=== PATIENT | female | born 1950 | race Caucasian/White ===

== ENCOUNTER 2019-10-01 10:45 | Outpatient (CLI) | payer OTHER, SELFPAY ==
--- NOTE | ~2019-10-01 | XR_ITS ---
XR shoulder RT min 2V 10/01/2019 11:25 Indication: Aftercare for right shoulder joint replacement surgery Procedure: 5 views right shoulder Comparison: No prior studies for comparison. Findings: There is a right total shoulder arthroplasty. Prosthesis well seated. No evidence for loose william. No fracture or traumatic malalignment. Visualized lung parenchyma is unremarkable. Impression: 1: No acute bone or joint abnormality. Reviewed, dictated and finalized at location A. Impression: 1: No acute bone or joint abnormality.
== END 2019-10-01 10:46 | disposition home or self-care (01) ==
PROVIDERS: PCP Internal Medicine
DX: Z96.611 Presence of right artificial shoulder joint (principal); Z47.1 Aftercare following joint replacement surgery
CPT/HCPCS: 73030

== ENCOUNTER 2021-09-01 09:16 | Outpatient (CLI) | payer MEDICARE, SELFPAY ==
--- NOTE | ~2021-09-01 | MM_ITS ---
EXAMINATION: MM screening emanuel BI w loretta HISTORY: Screening mammogram TECHNIQUE: Craniocaudal and mediolateral oblique 3-D tomosynthesis images were obtained and synthetic 2-D images were generated. CAD analysis was submitted and interpreted. COMPARISON: 01/2019 bilateral screening mammogram BREAST PARENCHYMAL COMPOSITION: There are scattered areas of fibroglandular density. FINDINGS: History of bilateral breast reduction surgery 50 years ago, which likely accounts for stabl e mild fibroglandular asymmetry as well as some benign calcifications, particularly prominent benign fat necrosis calcification in the posterior lower mid left breast. There is no evidence of suspicious mass, calcification, or architectural distortion to suggest malign missy in either breast. There has been no suspicious interval change. IMPRESSION: 1. No mammographic evidence of malignancy. 2. Recommend routine screening mammography in one year. BI-RADS Category 2: Benign finding(s). Reviewed, dictated and finalized at location A.
== END 2021-09-01 09:17 | disposition home or self-care (01) ==
LOC: ANHIMG 09:18
PROVIDERS: PCP Family Medicine; Visit Provider Family Medicine
DX: Z12.31 Encounter for screening mammogram for malignant neoplasm of breast (principal)
CPT/HCPCS: 77063; 77067

== ENCOUNTER → 2021-12-09 08:25 | Outpatient (CLI) | payer MEDICARE, SELFPAY ==
--- NOTE | ~2021-12-09 | MR_ITS ---
EXAMINATION: MR lumbar spine wo con DATE: 12/09/2021 08:59 INDICATION: Lumbago. TECHNIQUE: Magnetic resonance imaging (MRI) of the lumbar spine was performed without intravenous con trast. Sequences included sagittal T2-weighted FSE, sagittal T2-weighted FS FSE, sagittal T1-weighted FSE, and axial T2-weighted FSE. COMPARISON: Lumbar spine MRI 11/09/2016 FINDINGS: There is 5 degrees levocurvature of lumbar spine. There is a transitional segment at the funmilayo mbosacral junction that is designated L5. There is mild chronic anterior wedging of T11 vertebral bod y. There is severely decreased disc height at T11-T12, mildly decreased disc height at T12-L1 and L1- L2, moderately decreased disc height at L4-L5 with endplate remodeling. There is a hemangioma in L1 v ertebral body. There is ligamentum flavum hypertrophy at the lumbar disc levels. The distal spinal co rd signal intensity is normal. The conus medullaris is at L1. The following disc levels are specifica lly discussed: L1-L2: The disc is bulging. There is mild bilateral facet joint osteoarthritis. There is mild bilater al neural foraminal stenosis. There is mild central canal stenosis. L2-L3: The disc is bulging. There is moderate right and severe left facet joint osteoarthritis. There is mild bilateral neural foraminal stenosis. There is mild central canal stenosis. L3-L4: The disc is bulging and has an annular fissure. There is severe bilateral facet joint osteoart hritis. There is mild bilateral neural foraminal stenosis. There is mild central canal stenosis. L4-L5: The disc is bulging and has an annular fissure. There is severe bilateral facet joint osteoart hritis. There is mild bilateral neural foraminal stenosis. There is mild central canal stenosis. L5-S1: The disc does not extend beyond the endplate margin. There is no facet joint hypertrophy. Ther e is no neural foraminal stenosis. There is no central canal stenosis. IMPRESSION: 1. Moderate lumbar spondylosis, stable from 11/09/2016. Reviewed, dictated and finalized at location A.
== END ==
PROVIDERS: PCP Family Medicine; Visit Provider Nurse Practitioner Family
DX: M47.896 Other spondylosis, lumbar region (principal)
CPT/HCPCS: 72148

== ENCOUNTER 2022-01-26 10:32 | Outpatient (CLI) | payer MEDICARE, SELFPAY ==
[2022-01-26 19:20] LABS: Alanine Aminotransferase 16 U/L (6-35); Albumin Level 3.8 g/dL (3.5-5.1); Alkaline Phosphatase 70 U/L (38-126); Anion Gap 7 mmol/L (8-16); Aspartate Amino Transferase 33 U/L (14-36); Bilirubin,Total 0.4 mg/dL (0.2-1.3); Blood Urea Nitrogen 19 mg/dL (7-17); Calcium 8.9 mg/dL (8.4-10.2); Carbon Dioxide 29 mmol/L (22-30); Chloride 105 mmol/L (98-107); Cholesterol 161 mg/dL (0-200); Estimated Glomerular Filt Rate > 60; Glucose 100 mg/dL (65-110); HDL Direct 56 mg/dL; Potassium 4.1 mmol/L (3.4-5.0); Sodium 141 mmol/L (137-145); Triglycerides 193 mg/dL (<150)
[2022-01-26 19:31] LABS: LDL Cholesterol Direct 64 mg/dL
[2022-01-26 21:10] LABS: Thyroid Stimulating Hormone Reflex 0.491 uIU/mL (0.465-4.68)
== END 2022-01-26 10:33 | disposition home or self-care (01) ==
LOC: ANHGOSHLAB 10:33
PROVIDERS: PCP Family Medicine; Visit Provider Family Medicine
DX: E78.2 Mixed hyperlipidemia (principal); I10 Essential (primary) hypertension; E03.9 Hypothyroidism, unspecified
CPT/HCPCS: 36415; 80053; 80061; 84443

== ENCOUNTER 2022-11-05 14:59 | Outpatient (CLI) | payer MEDICARE, SELFPAY ==
[2022-11-05 19:16] LABS: Alanine Aminotransferase 21 U/L (6-35); Albumin Level 4.2 g/dL (3.5-5.1); Alkaline Phosphatase 98 U/L (38-126); Anion Gap 3 mmol/L (8-16); Aspartate Amino Transferase 33 U/L (14-36); Bilirubin,Total 0.5 mg/dL (0.2-1.3); Blood Urea Nitrogen 23 mg/dL (7-17); Calcium 9.2 mg/dL (8.4-10.2); Carbon Dioxide 34 mmol/L (22-30); Chloride 103 mmol/L (98-107); Cholesterol 181 mg/dL (0-200); Estimated Glomerular Filt Rate > 60; Glucose 93 mg/dL (65-110); HDL Direct 57 mg/dL; Potassium 4.2 mmol/L (3.4-5.0); Sodium 140 mmol/L (137-145); Triglycerides 182 mg/dL (<150)
[2022-11-05 19:27] LABS: LDL Cholesterol Direct 76 mg/dL
[2022-11-05 19:35] LABS: Thyroid Stimulating Hormone Reflex 0.059 uIU/mL (0.465-4.68)
[2022-11-05 20:19] LABS: Folic Acid 18.1 ng/mL (2.76->20)
[2022-11-05 20:55] LABS: Free T4 Free Thyroxine Reflex 1.27 ng/dL (0.78-2.19)
[2022-11-05 21:41] LABS: Total Triiodothyronine (T3) 1.27 NG/ML (0.97-1.69)
== END 2022-11-05 15:00 | disposition home or self-care (01) ==
LOC: ANHGOSHLAB 15:00
PROVIDERS: PCP Family Medicine; Visit Provider Family Medicine
DX: Z13.220 Encounter for screening for lipoid disorders (principal); R20.2 Paresthesia of skin; Z13.29 Encounter for screening for other suspected endocrine disorder; Z13.228 Encounter for screening for other metabolic disorders
CPT/HCPCS: 36415; 80053; 80061; 82607; 82746; 84439; 84443; 84480

== ENCOUNTER 2022-12-17 13:04 | Outpatient (CLI) | payer MEDICARE, SELFPAY ==
[2022-12-17 19:53] LABS: Thyroid Stimulating Hormone Reflex 0.136 uIU/mL (0.465-4.68)
[2022-12-17 20:34] LABS: Free T4 Free Thyroxine Reflex 1.53 ng/dL (0.78-2.19)
[2022-12-17 21:51] LABS: Total Triiodothyronine (T3) 1.16 NG/ML (0.97-1.69)
== END 2022-12-17 13:05 | disposition home or self-care (01) ==
LOC: ANHGOSHLAB 13:05
PROVIDERS: PCP Family Medicine; Visit Provider Family Medicine
DX: Z13.29 Encounter for screening for other suspected endocrine disorder (principal); E03.9 Hypothyroidism, unspecified
CPT/HCPCS: 36415; 84439; 84443; 84480

== ENCOUNTER 2023-04-08 12:31 | Outpatient (CLI) | payer MEDICARE, SELFPAY ==
[2023-04-09 09:34] LABS: Thyroid Stimulating Hormone 0.591 uIU/mL (0.465-4.680)
== END 2023-04-08 12:32 | disposition home or self-care (01) ==
PROVIDERS: PCP Family Medicine; Visit Provider Family Medicine
DX: E03.9 Hypothyroidism, unspecified (principal)
CPT/HCPCS: 36415; 84439; 84443

== ENCOUNTER 2023-05-26 03:53 | Day surgery (SDC) | payer MEDICARE, SELFPAY ==
[2023-05-06 10:22] VITALS: BMI 28.4
--- NOTE | 2023-05-17 09:30 | SUR.PREOP ---
Patient called regarding upcoming procedure. Reviewed preop instructions, appointment times, and procedure prep.
--- NOTE | 2023-05-24 09:42 | SUR.PREOP ---
Patient called regarding upcoming procedure. Reviewed preop instructions, appointment times, and procedure prep.
[2023-05-26 06:55] VITALS: BP 106/61; PULSE 84; RESP 18; TEMP 36.1; O2SAT 100
[2023-05-26] MEDS: LACTATED RINGERS 1,000 ML 150 ML IV CONT (07:13)
--- NOTE | 2023-05-26 07:43 | WPDANESEPPF ---
Anes - Initial Pre Proc Eval Procedure: Operation Date: 05/26/23 08:00 Proposed Procedures p Colonoscopy - Blas Juares MD Date/Time: 05/26/23 07:43 Surgeon: Blas Juares MD Pre Op Diagnosis: change in bowel habit,constipation Patient Data Age: 72 Gender: F Height: 1.65 m Weight: 79.4 kg Last Vital Signs Temp 97 F L 05/26/23 06:55 Pulse 84 05/26/23 06:55 Resp 18 05/26/23 06:55 BP 106/61 05/26/23 06:55 Pulse Ox 100 05/26/23 06:55 O2 Del Method Room Air 05/26/23 06:55 Allergies Allergy/AdvReac Type Severity Reaction Status Date / Time No Known Allergies Allergy Verified 05/26/23 06:53 Home Medications Medication Instructions Recorded Confirmed Type diphenhydramine 25 1 tablet PO Q6H PRN Pain 05/24/19 05/06/23 History mg-acetaminophen 500 mg tablet (Tylenol PM Extra Strength) duloxetine 60 mg capsule,delayed 60 mg PO DAILY #90 caps 07/06/22 05/06/23 Rx release lisinopril 20 mg tablet 20 mg PO DAILY #90 tabs 07/06/22 05/06/23 Rx lovastatin 40 mg tablet 40 mg PO DAILY #90 tabs 07/06/22 05/06/23 Rx gabapentin 300 mg capsule 600 mg PO BID #360 caps 12/07/22 05/06/23 Rx cholecalciferol (vitamin D3) 25 1,000 unit PO DAILY 04/06/23 05/06/23 History mcg (1,000 unit) capsule levothyroxine 88 mcg tablet 88 mcg PO DAILY #30 tabs 04/12/23 05/06/23 Rx lactulose 20 gram/30 mL oral 20 g (30 mL) PO BID PRN 05/04/23 05/06/23 Rx solution constipation #1,200 mL Patient hx anesthesia problems: none Family hx anesthesia problems: none Results Review: All pre-operative results and documents have been reviewed as part of the pre-operative evaluation. [facility] Family History Family History Mother Hypertension Family history of heart disease in male family member before age 55 Diabetes mellitus, Onset Age: 81 Family history of cardiovascular disease, Onset Age: 81 Sibling Hypertension Family history of heart disease in male family member before age 55 Father Family history of lung cancer Patient's father is Grandparent Family history of type 2 diabetes mellitus Social History Social History Smoking status: Never smoker Alcohol intake: never Substance use type: does not use Lack of Transportation: No Lack of Food: Never True Current Housing: I Have Housing Concerned About Future Housing: No Difficulty Paying Gas/Electric Bills: No Difficulty Paying for Meds: No Currently Unemployed: No Education: High School Diploma/GED Difficulty w/ Childcare or Family Care: No Living arrangements: with family Spiritual care concerns: No Anes - Eval Final PreProcedure Day of Procedure 05/26/23 07:43 Patient weight: normal Heart: regular rate and rhythm Lungs: clear to auscultation Airway: Mallampati scale class II Neurological: alert and oriented Last oral intake: >/= 8 hours ASA classification: III Emergent: no Anesthetic plan: proceed Anesthesia type and monitoring: general GIVS and standard monitoring Results Review: All pre-operative results and documents have been reviewed as part of the pre-operative evaluation. Informed Consent: The patient's anesthetic plan and its attendant risks and benefits were discussed with the patient/family/POA. Questions were solicited and answers provided to the satisfaction of the patient/family/POA.
--- NOTE | 2023-05-26 07:46 | PM.HPGS ---
History of Present Illness History of Present Illness Consent: Risks, benefits, and alternatives have been discussed and questions answered. Patient agrees to proceed with procedure. Chief complaint: change in bowel habit,constipation Narrative: Alyssa Faria is a 72 year old female with new onset of constipation, last colonoscopy 2011 Review of Systems Constitutional: Constitutional: Denies headache(s) and Denies weakness Eyes: Eyes: Denies blurry vision ENT: Reports Normal hearing present, Denies headache(s) and Denies neck pain Cardiovascular: Cardiovascular: Denies chest pain and Denies dyspnea Respiratory: Respiratory: Denies dyspnea Gastrointestinal: Gastrointestinal: Reports no additional gastrointestinal complaints Genitourinary: Genitourinary: Denies dysuria Musculoskeletal: Musculoskeletal: Denies neck pain Integumentary/Breasts: Skin/Breast: Denies dry skin Neurologic: Reports Normal hearing present, Denies headache(s) and Denies weakness Psychiatric: Psychiatric: Denies anxiety Endocrine: Endocrine: Denies change in body appearance Hematologic/Lymphatic: Hematologic/Lymphatic: Denies easy bleeding Allergic/Immunologic: Allergic/Immunologic: Denies urticaria PMFSH Past Medical History Medical History (Updated 05/26/23 @ 07:46 by Bals Juares MD) Constipation Family History Family History Mother Hypertension Family history of heart disease in male family member before age 55 Diabetes mellitus, Onset Age: 81 Family history of cardiovascular disease, Onset Age: 81 Sibling Hypertension Family history of heart disease in male family member before age 55 Father Family history of lung cancer Patient's father is Grandparent Family history of type 2 diabetes mellitus Social History Social History Smoking status: Never smoker Alcohol intake: never Substance use type: does not use Lack of Transportation: No Lack of Food: Never True Current Housing: I Have Housing Concerned About Future Housing: No Difficulty Paying Gas/Electric Bills: No Difficulty Paying for Meds: No Currently Unemployed: No Education: High School Diploma/GED Difficulty w/ Childcare or Family Care: No Living arrangements: with family Spiritual care concerns: No Meds Home Medications and Allergies Home Medications Medication Instructions Recorded Confirmed Type diphenhydramine 25 1 tablet PO Q6H PRN Pain 05/24/19 05/06/23 History mg-acetaminophen 500 mg tablet (Tylenol PM Extra Strength) duloxetine 60 mg capsule,delayed 60 mg PO DAILY #90 caps 07/06/22 05/06/23 Rx release lisinopril 20 mg tablet 20 mg PO DAILY #90 tabs 07/06/22 05/06/23 Rx lovastatin 40 mg tablet 40 mg PO DAILY #90 tabs 07/06/22 05/06/23 Rx gabapentin 300 mg capsule 600 mg PO BID #360 caps 12/07/22 05/06/23 Rx cholecalciferol (vitamin D3) 25 1,000 unit PO DAILY 04/06/23 05/06/23 History mcg (1,000 unit) capsule levothyroxine 88 mcg tablet 88 mcg PO DAILY #30 tabs 04/12/23 05/06/23 Rx lactulose 20 gram/30 mL oral 20 g (30 mL) PO BID PRN 05/04/23 05/06/23 Rx solution constipation #1,200 mL Allergies Allergy/AdvReac Type Severity Reaction Status Date / Time No Known Allergies Allergy Verified 05/26/23 06:53 Vital Signs Vital Signs - 24 hr 05/26/23 06:55 Temperature 97 F L Pulse Rate 84 Respiratory Rate 18 Blood Pressure 106/61 Pulse Oximetry 100 Oxygen Delivery Room Air Exam Const: General: comfortable and no acute distress HENMT: Face/Nose/Sinus: Normal nares present Eyes: General: appearance normal, both eyes and all related structures Neck: Neck: no JVD Resp: Auscultation: clear to auscultation bilaterally Cardio: Rate: regular rate Rhythm: regular rhythm GI: Inspection: non-distended GI Palp: Yes
[2023-05-26 08:05] VITALS: BP 90/53; PULSE 72; RESP 18; O2SAT 99
[2023-05-26 08:15] VITALS: BP 96/55; PULSE 74; RESP 13; O2SAT 100
[2023-05-26 08:25] VITALS: BP 99/62; PULSE 71; RESP 22; O2SAT 100
--- NOTE | 2023-05-26 08:50 | SUR.PHASEII ---
RN assisted pt spouse to get the car via wheelchair. pt spouse did not know what car they drove to the hospital, what color it was or where they had parked. visitor asked where his was and RN reminded pt that she was getting dressed in recovery. pt then asked what he needed to do next after arriving to the car. RN asked visitor if he normally drives. visitor stated he does sometimes. Rn expressed concern with visitor driving. Rn then addressed the concerns with the pt. pt agreed to then call neighbor to pick them up. spouse brought back into recovery room to wait with pt. pt and visitor deny needs. awaiting ride at this time.
== END 2023-05-26 09:15 | disposition home or self-care (01) ==
PROVIDERS: PCP Family Medicine; Visit Provider Internal Medicine Gastroenterology
PROC: 0DJD8ZZ Inspection of Lower Intestinal Tract, Via Natural or Artificial Opening Endoscopic (ICD-10-PCS; CPT 45378; principal; 2023-05-26 08:00)
DX: D12.2 Benign neoplasm of ascending colon (principal); K64.8 Other hemorrhoids; K59.00 Constipation, unspecified
CPT/HCPCS: 45385; 88305; J2704; J7120

== ENCOUNTER 2023-06-04 12:27 | Outpatient (CLI) | payer MEDICARE, SELFPAY ==
--- NOTE | ~2023-06-04 | DEXA_ITS ---
Bone Density Report Name: KACEY ADAMS Age: 72 Sex: Female Ethnicity: White Date of : 1950 Indication: postmenopausal; screening for osteoporosis; height loss; inflammatory bowel disease; hysterectomy; Referring Provider: MALIA WANG Study: Bone densitometry was performed. Exam Date: June 04, 2023 Accession number: [id number] Bone Density: Region BMD T-score Z-score Classification AP Spine(L1-L4) 1.137 0.8 3.1 Normal Femoral Neck (Left) 0.756 -0.8 1.2 Normal Total Hip (Left) 0.907 -0.3 1.4 Normal Femoral Neck (Right) 0.667 -1.6 0.4 Osteopenia Total Hip (Right) 0.898 -0.4 1.3 Normal Total Hip Mean 0.903 -0.4 1.4 Normal World Health Organization criteria for BMD impression classify patients as: Normal (T-score at or above -1.0), Osteopenia (T-score between -1.0 and -2.5), or Osteoporosis (T-score at or below -2.5). 10-year Fracture Risk(1): Major Osteoporotic Fracture 11% Hip Fracture 2.0% Reported Risk Factors: [place] (), Neck BMD=0.667, BMI=30.6 (1) FRAX(R) Version 3.08. Fracture probability calculated for an untreated patient. Fracture probability may be lower if the patient has received treatment. Clinical Information Provided by Patient: Has used the following medications: Vitamin D Has the following medical conditions: Inflammatory bowel diseases, Hysterectomy, hypothyroid Patient maximum height was 66.0 Does not regularly consume dairy products Drinks caffeinated beverages Onset of menses at age 10 Number of children 1 Impression: The patient has low bone mass, based on the Right Femoral Neck T-score. The patient has an estimated ten-year risk of hip fracture of 2% and an estimated ten-year risk of major fracture of 11%, based on the WHO FRAX algorithm. Discussion: BONE DENSITY IS LOW AT ONE OR MORE SKELETAL SITES. This patient's lowest T-score is low at one or more skeletal sites. It meets the World Health Organization's (WHO) criteria for ?low bone mass? (T-score between -1.0 and -2.5). The patient's 10-year risk of fracture as calculated by FRAX is less than the threshold where pharmacological therapy is recommended by the National Osteoporosis Foundation (NOF). However, all treatment decisions require clinical judgment and consideration of individual patient factors, including patient preferences, comorbidities, previous drug use, risk factors not captured in the FRAX model (e.g., frailty, falls, vitamin D deficiency, increased bone turnover, interval significant decline in bone density) and possible under or overestimation of fracture risk by FRAX. The patient should follow a healthful lifestyle (good nutrition with adequate calcium and vitamin D, and appropriate weight-bearing exercise). Follow-Up: Consider repeating this study in 2 t
== END 2023-06-04 12:28 | disposition home or self-care (01) ==
LOC: ANHIMG 12:28
PROVIDERS: PCP Family Medicine; Visit Provider Family Medicine
DX: S22.000A Wedge compression fracture of unspecified thoracic vertebra, initial encounter for closed fracture (principal); X58.XXXA Exposure to other specified factors, initial encounter; M85.851 Other specified disorders of bone density and structure, right thigh
CPT/HCPCS: 77080

== ENCOUNTER 2023-08-27 14:19 | Outpatient (CLI) | payer MEDICARE, SELFPAY ==
--- NOTE | ~2023-08-27 | XR_ITS ---
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 No fracture or traumatic malalignm ent. Osteopenia. No focal soft tissue abnormality. No foreign bodies. Impression: 1: Mild polyarticular osteoarthritis. Reviewed, dictated and finalized at location B. Impression: 1: Mild polyarticular osteoarthritis.
--- NOTE | ~2023-08-27 | XR_ITS ---
XR hand LT min 3V 08/27/2023 14:32 Indication: Left hand pain Procedure: 3 views left hand Comparison: No prior studies for comparison. Findings: There is mild polyarticular osteoarthritis. No fracture, subluxation or dislocation. Normal mineralization. No focal soft tissue abnormality. No foreign bodies. Impression: 1: Mild polyarticular osteoarthritis. Reviewed, dictated and finalized at location B. Impression: 1: Mild polyarticular osteoarthritis.
== END 2023-08-27 14:20 ==
PROVIDERS: PCP Family Medicine; Visit Provider Family Medicine
DX: M19.041 Primary osteoarthritis, right hand (principal); M19.042 Primary osteoarthritis, left hand
CPT/HCPCS: 73130

== ENCOUNTER 2023-09-11 11:04 | Outpatient (CLI) | payer MEDICARE, SELFPAY ==
--- NOTE | ~2023-09-11 | XR_ITS ---
XR abdomen/kub 1V DATE: 09/11/2023 10:39 INDICATION: Diarrhea. Irregular bowel movements. TECHNIQUE: 2 supine AP views COMPARISON: None FINDINGS: 2 views of the pelvic skeletal hyperostosis of the lower thoracic spine. Transitional fifth lumbar vertebra. The bowel gas pattern is nonspecific, without evidence of obstruction. The psoas shadows appear intac t. No visceromegaly or significant abnormal calcification is noted. The lung bases appear clear. IMPRESSION: Nonspecific abdomen; no evidence of bowel obstruction Reviewed, dictated and finalized at Location A. Reviewed, dictated and finalized at location A.
[2023-09-11 11:24] LABS: Hemoglobin 12.8 g/dL (12.0-15.0); Mean Corpuscular HGB Conc 31.2 g/dl (32-36); Mean Corpuscular Hemoglobin 29.6 pg (26-34); Mean Corpuscular Volume 94.9 fl (80-100); Mean Platelet Volume 10.1 fl (7.4-10.4); Platelet Count Result 215 k/mm3 (150-375); Red Blood Count 4.32 M/mm3 (4.2-5.4); Red Cell Distribution Width 14.1 % (11.5-14.5); White Blood Count 7.3 K/mm3 (4.5-10.0)
[2023-09-11 11:32] LABS: Alanine Aminotransferase 15 U/L (6-35); Albumin Level 4.1 g/dL (3.5-5.1); Alkaline Phosphatase 58 U/L (38-126); Anion Gap 4 mmol/L (4-12); Aspartate Amino Transferase 27 U/L (14-36); Bilirubin,Total 0.7 mg/dL (0.2-1.3); Blood Urea Nitrogen 17 mg/dL (7-17); Calcium 9.3 mg/dL (8.4-10.2); Carbon Dioxide 31 mmol/L (22-30); Chloride 104 mmol/L (98-107); Estimated Glomerular Filt Rate > 60; Glucose 90 mg/dL (65-110); Potassium 4.2 mmol/L (3.4-5.0); Sodium 139 mmol/L (137-145)
[2023-09-11 13:27] LABS: Toxigenic C. Diff NEGATIVE (NEGATIVE)
[2023-09-19 19:43] LABS: Calprotectin, Stool 288 mcg/g
[2023-09-21 19:08] LABS: Pancreatic Elastase, Stool <15 mcg/g
== END 2023-09-11 11:05 | disposition home or self-care (01) ==
PROVIDERS: PCP Family Medicine; Visit Provider Nurse Practitioner Family
DX: R19.7 Diarrhea, unspecified (principal); E55.9 Vitamin D deficiency, unspecified
CPT/HCPCS: 36415; 74018; 80053; 82653; 83993; 85027; 87045; 87177; 87209; 87427; 87449; 87493

== ENCOUNTER 2023-11-09 07:18 | Outpatient (CLI) | payer MEDICARE, SELFPAY ==
--- NOTE | ~2023-11-09 | CT_ITS ---
CT of the Abdomen and Pelvis: Indication: Abnormal weight loss Technique: 2.5 mm axial scans were obtained through the abdomen and pelvis following intravenous adm inistration of 100 cc of Omnipaque 350. Dose reduction technique was used on this scan by utilizing a utomated exposure control and iterative reconstruction technique. The dose-length product (DLP) was 4 77.54 mGy-cm. Findings: Scans through the lung bases are unremarkable. The liver, spleen, pancreas, adrenals and kidneys are within normal limits. Multiple gallstones are p resent. There are atherosclerotic calcifications of the aorta. No lymphadenopathy. No bowel obstruction or bowel wall thickening. There is no evidence to suggest acute appendicitis. Images through the pelvis were performed. Urinary bladder unremarkable. No pelvic mass seen. No ascit es. Impression: Cholelithiasis. Reviewed, dictated and finalized at location . Impression: Cholelithiasis.
[2023-11-09 07:48] LABS: Estimated Glomerular Filt Rate > 60
== END 2023-11-09 07:19 | disposition home or self-care (01) ==
PROVIDERS: PCP Family Medicine; Visit Provider Nurse Practitioner Family
DX: R63.4 Abnormal weight loss (principal); K80.20 Calculus of gallbladder without cholecystitis without obstruction
CPT/HCPCS: 74177; Q9967

== ENCOUNTER 2023-11-11 12:16 | Outpatient (CLI) | payer MEDICARE, SELFPAY ==
[2023-11-18 16:19] LABS: Pancreatic Elastase, Stool >500 mcg/g
[2023-11-21 23:14] LABS: Calprotectin, Stool 27 mcg/g
== END 2023-11-11 12:17 | disposition home or self-care (01) ==
PROVIDERS: PCP Family Medicine; Visit Provider Nurse Practitioner Family
DX: R19.7 Diarrhea, unspecified (principal); R63.4 Abnormal weight loss
CPT/HCPCS: 82653; 83993

== ENCOUNTER 2024-04-04 10:40 | Outpatient (CLI) | payer MEDICARE, SELFPAY ==
[2024-04-04 12:25] LABS: Thyroid Stimulating Hormone 0.406 uIU/mL (0.465-4.680)
== END 2024-04-04 10:41 | disposition home or self-care (01) ==
PROVIDERS: PCP Emergency Medicine; Visit Provider Emergency Medicine
DX: E03.9 Hypothyroidism, unspecified (principal)
CPT/HCPCS: 36415; 84443

== ENCOUNTER 2024-06-30 12:24 | Outpatient (CLI) | payer MEDICARE, SELFPAY | END 2024-06-30 12:25 | disposition home or self-care (01) | PROVIDERS: PCP Emergency Medicine; Visit Provider Emergency Medicine | DX: I65.23 Occlusion and stenosis of bilateral carotid arteries (principal); N28.1 Cyst of kidney, acquired; N20.0 Calculus of kidney | CPT/HCPCS: 70450; 76775; 93880 ==

== ENCOUNTER 2024-08-09 14:44 | Outpatient (CLI) | payer MEDICARE, SELFPAY ==
--- NOTE | ~2024-08-09 | CT_ITS ---
CT sinus wo con Ordering provider: Jay Lynn MD History: . J32.9 - Chronic sinusitis, unspecified . Comparison: June 30, 2024 Technique: Thin slice Scans CT of the paranasal sinuses was performed with coronal and sagittal refor matted images. No IV contrast. . Automated exposure control and iterative reconstruction technique w ere employed. The dose-length product was 296.82 mGy-cm. Findings: NASAL SEPTUM: Left vivq-kx-wknubkot nasal septal deviation. OSTEOMEATAL UNITS: Bilaterally patent. NASAL TURBINATES AND NASOPHARYNX: Normal. PARANASAL SINUSES: Well aerated. VISUALIZED MASTOIDS: Normal as visualized. BONES: Normal. SUPERFICIAL SOFT TISSUES/VISUALIZED BRAIN PARENCHYMA: Normal. IMPRESSION: Left nasal septal deviation. Other appearances are unremarkable. Reviewed, dictated and finalized at location A.
--- OUTSIDE RECORDS SUMMARY | 2024-08-09 16:23 | XMS_ITS | Data Portability ---
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 He has been 11 weeks since last injection right knee. She did not get good relief. She is still takes meloxicam 15 mg daily. She does not think it is helping either. She has moderately severe medial compartment and moderately severe patellofemoral osteoarthritis in the knee. She is caring for her right now is dementia so she is feeling a lot. She does not feel to it she is able to do surgery at this point due to caring for him. Physical exam: 71-year-old female alert. She walks with a minimal limp. Mild effusion in the right knee. Range of motion is from 10-130 degrees. Moderate pain with patellofemoral grind. Moderate tenderness over the medial joint line palpation. Trace edema in both lower extremities. ChloraPrep used on skin 20 mg Kenalog and 3 cc of 0.5% ropivacaine was injected into the right knee. Risk infection discussed. Impression: 71-year-old female has moderately severe patellofemoral and medial compartment osteoarthritis. Again she does not feel the meloxicam is helping she has taken Celebrex in the past and will try this, 200 mg daily. She is going to think about surgery at this point. She had a partial knee replacement on the left however given the arthritic changes of her patellofemoral joint she may not be a good candidate for partial on the right and may need a total knee arthroplasty. I will see her back in 3 months for re-evaluation. I reminded her that these be minimum of 3 months from the injection till time surgery. She finds her symptoms worsening she call to come in earlier is discussed and 20 minutes spent in treatment the patient more than half of this [id number] conversation Not available 08/05/2022 14:08:26 11/16/2022 11/16/2022 HPI: Patient returns. She is here for cortisone injection in the right knee. Last shot was 3 months ago. She does get some good relief from the injections but is thinking about having surgery on the knee at the early part of next year. She wished to have an injection today and again in January then possibly discuss surgical options in April. Again she has moderately severe medial compartment osteoarthritis as well as moderate patellofemoral changes in the medial facet of the patellofemoral joint. Physical exam: 72-year-old female alert pleasant. She walks well without assistance. She has mild effusion in the right knee. Range of motion is from 7-130 degrees. Moderate tenderness with patellofemoral grind moderate tenderness to palpation the medial joint line. After ChloraPrep was used on the skin 20 mg Kenalog and 3 cc of 0.5% ropivacaine was injected into the right knee. Risk of infection discussed. Impression: 72-year-old female has medial compartment osteoarthritis. Again she wished to have an injection today. We will schedule her to come back on January 29, she will see Jaron and get a cortisone injection in the right knee we are not going to be in the office at time and she wished to have an injection before she goes to [place] for her son's wedding. Not available 11/16/2022 16:42:09 01/29/2023 01/29/2023 Patient has advanced primary osteoarthritis right knee joint. At her request under sterile conditions I injected the patient's right knee joint in the office with 4 cc 0.5% ropivacaine and 20 mg of Kenalog. Patient tolerated the procedure well. I will see her back as needed she will talk to Dr. Baker when she is ready for total knee arthroplasty. She voiced understanding agrees above plan she will call for any further problems difficulties or questions. [email or web address] Not available 01/29/2023 14:06:45 06/25/2023 06/25/2023 HPI: Patient returns. She is here due to pain in the right knee. She had a cortisone injection last January. She has moderately severe medial compartment osteoarthritis. She has had a partial knee replacement done on left which is doing very well. She initially was wanting to talk about surgery but at this point she has to take care of her who is developing dementia and has multiple medical issues as well. She wished to have an injection today to put off surgery at least for the time being. Physical exam: 72-year-old female alert pleasant. She has mild effusion right knee. Range of motion is from 7-135 degrees. Mild tenderness over the medial joint line palpation. Trace edema both lower extremities. After ChloraPrep was used on skin 20 mg Kenalog and 3 cc of 0.5% ropivacaine was injected into the right knee. Impression: 72-year-old female who has moderately severe medial compartment osteoarthritis on previous x-rays. Again she is wanting to delay surgery for the time being so that she can care for herself . She can repeat shots often as every 3 months. We will see her back as needed. 20 minutes was spent treatment patient more than half of that in [id number] conversation mildred Not available 06/25/2023 14:35:48 Plan of Treatment Reminders Order Date Submit Date Provider Last Modified By Organization Details Last Modified Time Details Appointments None recorded. Lab None recorded. Referral None recorded. Procedures injection/a spiration joint/bursa (PROC) - in office procedure, administere d by provider 2023 024 [email or web address] In-Office Order, Internal Use Only DO Not Attach Compendium DO Not Attach Compendium, Do Not Delete/merge, [id number] 14:12:05 injection/a spiration joint/bursa (PROC) - in office procedure, administere d by provider 2022 023 [email or web address] In-Office Order, Internal Use Only DO Not Attach Compendium DO Not Attach Compendium, Do Not Delete/merge, [id number] 13:52:56 injection/a spiration joint/bursa (PROC) - in office procedure, administere d by provider 2022 023 In-Office Order, Internal Use Only DO Not Attach Compendium DO Not Attach Compendium, Do Not Delete/merge, [id number] 3 15:49:06 injection/a spiration joint/bursa (PROC) - in office procedure, administere d by provider 2022 023 [email or web address] In-Office Order, Internal Use Only DO Not Attach Compendium DO Not Attach Compendium, Do Not Delete/merge, [id number] 13:47:28 Surgeries None recorded. Imaging None recorded. Medication Orders Kenalog 10 mg/mL suspension for injection [address] [facility], [id number] [place] [address], [address], 4 16:17:18 ropivacaine (PF) 5 mg/mL (0.5 %) injection solution [address] [facility], [address] [place] [address], [address], 4 16:17:18 Kenalog 10 mg/mL suspension for injection [address] [facility] [address], [id number] [place] [address], [address], 4 13:58:35 ropivacaine (PF) 5 mg/mL (0.5 %) injection solution [address] [facility] [address], [id number] [place] [address], [address], 4 13:58:25 Kenalog 10 mg/mL suspension for injection [address] [facility] [address], [id number] [place] [address], [address], 4 13:58:35 ropivacaine (PF) 5 mg/mL (0.5 %) injection solution [address] [facility], [address], [address], 4 13:58:25 Kenalog 10 mg/mL suspension for injection [address] [facility], [address] [place] [address], [address], 4 13:58:35 ropivacaine (PF) 5 mg/mL (0.5 %) injection solution [address] [facility], [address] [place] [address], [address], 4 13:58:25 celecoxib 200 mg capsule [address] [facility], [address] [place] [address], [address], 3 15:46:42 Patient TargetsNo targets recorded. Patient InstructionsNo instructions recorded. Reason for Referral None Reported. Results Created Date Observation Date Name Description Value Unit Range Abnormal Flag Note LastModifiedBy Organization Detail LastModifiedTime 05/20/19 23 XR, knee No observ ation record ed. [id number] [place] [address] [address], [place], [address], 07/01/2022 13:33:11 Result Notes None recorded. Problems Name Problem SNOMED Code Status Onset Date Resolution Date Notes Provider Name and Address Organization Details Recorded Time Peripheral enthesopat hy 925208114 Active Not Available [facility] 3 13:30:25 Prepatella r bursitis 57758437 Active Not Available [facility] 13:30:25 Partial thickness rotator cuff tear 341994330 Active Not Available [facility] 3 13:30:25 Osteoarthr itis of knee 371554657 Active Not Available [employer] 3 13:30:25 Shoulder joint pain 765210200 Active Not Available [facility] 3 13:30:25 Knee pain Active Not Available [facility] 3 13:30:25 Osteoarthr itis 006062823 Active Not Available [facility] 3 13:30:25 Osteoarthr itis of right knee joint 9961126087695 00 Active 2022 ANNY Haas null, [place] [facility] 3 13:45:58 Problem Notes None recorded. Procedures Surgical History None recorded. Imaging Results Imaging Date Name Status LastModified by Organiz ation Details LastModified Time 05/20/2022 XR, knee completed [id number] [id number] [place] [address], [place], [address], 07/01/2022 13:33:11 Procedure Notes None recorded. Medical Equipment None Reported. Medications Name Sig Start Date Stop Date Status Note LastModified by Organization Details LastModified Time celecoxib 200 mg capsule TAKE 1 CAPSULE BY MOUTH ONCE DAILY 11/16 completed Not Available Not Available Not Available levothyroxi ne 137 mcg tablet 11/15 completed Not Available Not Available Not Available prednisone 10 mg tablet 11/15 completed Not Available Not Available Not Available gabapentin 600 mg tablet 11/15 completed Not Available Not Available Not Available azithromyci n 250 mg tablet 11/15 completed Not Available Not Available Not Available ibuprofen 800 mg tablet 02/22 completed Not Available Not Available Not Available hydrocodone 5 mg-acetamin ophen 325 mg tablet 11/15 completed Not Available Not Available Not Available meloxicam 15 mg tablet TAKE 1 TABLET BY MOUTH ONCE DAILY 11/16 completed Not Available Not Available Not Available lisinopril 20 mg tablet TAKE 1 TABLET BY MOUTH ONCE DAILY active Not Available Not Available No t Available bupivacaine HCl 0.5 % (5 mg/mL) injection solution In office injection administe red by the provider 10/29 completed Not Available Not Available Not Available prednisone 20 mg tablet active Not Available Not Available Not Available lovastatin 40 mg tablet TAKE 1 TABLET BY MOUTH ONCE DAILY active Not Available Not Available No t Available tramadol 50 mg tablet TAKE 1 TABLET BY MOUTH THREE TIMES DAILY NEEDED 10/09 completed Not Available Not Available Not Available levothyroxi ne 75 mcg tablet TAKE 1 TABLET BY MOUTH ONCE DAILY 06/25 completed Not Available Not Available Not Available levothyroxi ne 100 mcg tablet TAKE 1 TABLET BY MOUTH ONCE DAILY 11/16 completed Not Available Not Available Not Available oxycodone-a cetaminophe n 5 mg-325 mg tablet 11/15 completed Not Available Not Available Not Available levothyroxi ne 88 mcg tablet TAKE 1 TABLET BY MOUTH ONCE DAILY active Not Available Not Available No t Available amoxicillin 875 mg tablet 02/22 completed Not Available Not Available Not Available amitriptyli ne 25 mg tablet 11/15 completed Not Available Not Available Not Available ciprofloxac in 0.3 % eye drops 11/15 completed Not Available Not Available Not Available Kenalog 10 mg/mL suspension for injection in office 2023 active [facility]: 0003- 0494- 20 Not Available Not Available Not Available levothyroxi ne 125 mcg tablet 11/15 completed Not Available Not Available Not Available ranitidine 150 mg tablet 11/15 completed Not Available Not Available Not Available polymyxin B sulfate 10,000 unit-trimet hoprim 1 mg/mL eye drops 11/15 completed Not Available Not Available Not Available levothyroxi ne 150 mcg tablet 11/15 completed Not Available Not Available Not Available gabapentin 300 mg capsule TAKE 2 CAPSULES BY MOUTH TWICE DAILY active Not Available Not Available No t Available omeprazole 20 mg capsule,del ayed release 11/15 completed Not Available Not Available Not Available diclofenac sodium 75 mg tablet,bam yed release 11/15 completed Not Available Not Available Not Available gabapentin 100 mg capsule 11/15 completed Not Available Not Available Not Available lovastatin 20 mg tablet 11/15 completed Not Available Not Available Not Available fluticasone propionate 50 mcg/actuati on nasal spray,suspe nsion 11/15 completed Not Available Not Available Not Available levothyroxi ne 112 mcg tablet 10/09 completed Not Available Not Available Not Available duloxetine 30 mg capsule,del ayed release 11/15 completed Not Available Not Available Not Available duloxetine 60 mg capsule,del ayed release TAKE 1 CAPSULE BY MOUTH ONCE DAILY 06/25 completed Not Available Not Available Not Available lactulose 10 gram/15 mL oral solution TAKE 20 GM (30 ML) TWICE DAILY NEEDED FOR CONSTIPAT ION 06/25 completed Not Available Not Available Not Available aspirin 81 mg 05/30 completed Not Available Not Available Not Available calcium active Not Available Not Avail able Not Available Concentrate d Fiber active Not Available Not Available Not Available Tylenol PM 2020 active Not Available Not Available Not Avai lable lidocaine (PF) 10 mg/mL (1 %) injection solution In office injection administe red by the provider 10/29 completed [facility]: 0409- 4276- 17 Not Available Not Available Not Available lidocaine (PF) 5 mg/mL (0.5 %) injection solution In office injection administe red by the provider 06/25 completed Not Available Not Available Not Available Prevnar 13 (PF) 0.5 mL intramuscul ar syringe PHARMACIS T ADMINISTE RED IMMUNIZAT ION ADMINISTE RED AT TIME OF DISPENSIN G 02/22 completed Not Available Not Available Not Available Probiotic 06/25 completed Not Available Not Available Not Available ropivacaine (PF) 5 mg/mL (0.5 %) injection solution in office 2023 active [facility] [address]753 -064- 01 Not Available Not Available Not Available Linzess 145 mcg capsule TAKE 1 CAPSULE BY MOUTH ONCE DAILY 06/25 completed Not Available Not Available Not Available Fluzone High-Dose 2019- (PF) 180 mcg/0.5 mL intramuscul ar syringe PHARMACIS T ADMINISTE RED IMMUNIZAT ION ADMINISTE RED AT TIME OF DISPENSIN G 02/22 completed Not Available Not Available Not Available Fluzone High-Dose Quad 2019- (PF) 240 mcg/0.7 mL IM syringe PHARMACIS T ADMINISTE RED IMMUNIZAT ION ADMINISTE RED AT TIME OF DISPENSIN G 01/31 completed Not Available Not Available Not Available Vitals Date Recorded Body height Provider Name an d Address Organization Details Last Updated DateTime 05/20/2022 165.1 cm Not Available [employer] 13:30:13 Date Recorded Body height Provider Name an d Address Organization Details Last Updated DateTime 08/05/2022 165.1 cm ANNY Haas [email or web address] [facility] [employer] [facility] 08/05/2022 13:45:42 Date Recorded Body height Body mass index (BMI) Body weight Provider Name and Address Organization Details Last Updated DateTime 11/16/2022 162.56 cm 30.7 kg/m2 56845.03 g Magalie Rojas [email or web address] [facility] [employer] [facility] 11/16/2022 15:58:43 Date Recorded Body height Body mass index (BMI) Body weight Provider Name and Address Organization Details Last Updated DateTime 01/29/2023 167.64 cm 27.4 kg/m2 38124.7 toño Rojas Andrés [email or web address] [facility] [employer] [facility] 01/29/2023 13:51:16 Date Recorded Body height Provider Name an d Address Organization Details Last Updated DateTime 06/25/2023 167.64 cm Magalie Rojas [employer] [facility] [employer] [facility] 06/25/2023 13:52:54 Social History Question Answer Notes LastModified by Organizat ion Details LastModified Time Tobacco Smoking Status Never Smoker Not Available [facility] 07/01/2022 13:29:38 What Is Your Level Of Alcohol Consumption? None [id number] Information not available 07/01/2022 How Much Tobacco Do You Smoke? No [id number] Information not available 07/01/2022 Sex: Unknown Functional Status None recorded. Mental Status None recorded. Family History Relationship Description Onset Age of this Age Resolved Age Notes LastModified by Organization Details LastModified Time Mother Heart disease [id number] Not available 07/01/2022 13:29:45 Mother Hypertensive disorder [id number] Not available 07/01/2022 13:29:45 Mother Diabetes mellitus [id number] Not available 07/01/2022 13:29:45 Notes:Family history of hear t disease Medical History Condition Response BLINDNESS N KIDNEY STONES N MRSA N CARPAL TUNNEL SYNDROME N LUNG DISEASE/DISORDER N HISTORY OF DRUG ABUSE N RADIATION / CHEMOTHERAPY N COPD N SPORTS INJURY N ANKLE PAIN N BLOOD DISEASES N SCHIZOPHRENIA N SHINGLES N BOWEL PROBLEMS N SHOULDER PAIN N DEPRESSION (INCLUDING POST ) N STROKE/TIA N KNEE PAIN N ULCERS N BENIGN PROSTATIC HYPERPLASIA N OBESITY N GERD/NAUSEA N ANEURYSM N URINARY/BLADDER/KIDNEY PROBLEMS N CORONARY ARTERY DISEASE (CAD) N ADDICTION CONCERNS N USE OF BLOOD THINNERS N SKIN PROBLEMS N EMPHYSEMA N MUSCLE,JOINT OR BONE PROBLEMS N DVT N STOMACH ULCERS N BLOOD CLOTS N USE OF NSAIDS N CONCUSSION OR SPINAL TRAUMA N NEUROPATHY N AIDS/HIV N FRACTURES N ELBOW PAIN N HYPERTENSION Y TOURETTE'S N ANXIETY DISORDER N Metal allergy N BLOOD TRANSFUSION N ANEMIA/BLOOD DISORDER N BIPOLAR DISORDER N BRONCHITIS N OSTEOARTHRITIS N TUBERCULOSIS N FOOT PROBLEM N HEART VALVE DISORDERS N ALLERGIES/HAYFEVER N SOFT TISSUE INJURY N INFECTIOUS DISEASE N HEART ARRHYTHMIA N INSOMNIA N RHEUMATOID ARTHRITIS N HIGH CHOLESTEROL / HYPERLIPIDEMIA N EDEMA N CHRONIC PAIN SYNDROME N CAROTID BLOCKAGE N BACK / NECK PROBLEMS N HAVE YOU BEEN HOSPITALIZED OR SEEN IN [facility] ER IN THE PAST YEAR ? N BURSITIS N HERNIATED DISC N DIALYSIS N FIBROMYALGIA N OSTEOPOROSIS N ARTHRITIS Y NO SIGNIFICANT PAST MEDICAL HISTORY N PERIPHERAL NEUROPATHY N DIABETES, TYPE N HEARTBURN / REFLUX N HEPATITIS / LIVER DISEASE N GOUT N SLEEP DISORDER N ALZHEIMER'S DISEASE N HERPES N SEIZURES/EPILEPSY N HEADACHES/MIGRAINES N VASCULAR DISEASE N HIP PAIN N Blood Disorder N DIZZINESS N HEAD TRAUMA OR INJURY N HEART DISEASE/HEART PROBLEMS N MULTIPLE SCLEROSIS N CARDIAC ARRHYTHMIA N CANCER: SPECIFY N ANESTHESIA COMPLICATIONS N ATRIAL FIBRILLATION N AUTOIMMUNE DISEASE N Gynecological HistoryNo gynecological history recorded. Obstetrics History GPAL:G 0 P 0 0 0 0 Past Encounters Encounter ID Performer Location Encounter Start Date Encounter Closed Date Diagnosis/Indication Diagnosis SNOMED-CT Code Diagnosis ICD10 Code Diagnosis Note [id number] [facility] [place] [address] [address] [place] [address] 10/09/2020 00:00:00 10/09/2020 10:12:46 [id number] [facility] [place] [address] [facility] [address] [place] [address] 11/20/2020 00:00:00 11/20/2020 14:01:27 [id number] [facility] [place] [address] [facility] [address] [place] [address] 01/31/2021 00:00:00 01/31/2021 09:26:35 [id number] [facility] [place] [address] [place] [address] 05/30/2021 00:00:00 05/30/2021 12:07:32 [id number] [facility] [place] [address] [place] [address] 10/29/2021 00:00:00 10/29/2021 16:17:19 [id number] [facility] [place] [address] [place] [address] 03/11/2022 00:00:00 03/11/2022 13:59:11 [id number] [facility] [place] [address] [place] [address] 05/20/2022 00:00:00 05/20/2022 14:33:19 [id number] [facility] Link [facility] [place] [address] [place] [address] 08/05/2022 13:42:33 08/05/2022 14:22:30 Osteoarthritis of right knee joint 3373758275 76935 M17.11 [id number] [facility] Link [facility] [place] [address] [place] [address] 11/16/2022 15:34:04 11/16/2022 17:04:36 Osteoarthritis of right knee joint 8228593948 45070 M17.11 [id number] [facility] Art [facility] [place] [address] [place] [address] 01/29/2023 13:41:43 01/29/2023 14:18:00 Osteoarthritis of right knee joint 2149407627 63158 M17.11 [id number] [facility] iLnk [facility] [place] [address] [place] [address] 06/25/2023 13:38:21 06/25/2023 14:44:34 Osteoarthritis of right knee joint 1673826844 07173 M17.11 Health Concerns Section Related Observation LastModified by Organization Detai ls LastModified Time None Recorded Concern Status LastModified by Organization Details LastModified Time None Recorded Advance Directives Directive None Recorded Payers Encounter Date Sequence Insurance Name Policy Number Policy Spivey Covered Member ID Spivey Member ID Guarantor Name 08/05/2022 1 [employer] - PRIME (MEDICARE REPLACEMENT/ ADVANTAGE - HMO) [id number] Alyssa L Sudbring [id number] Alyssa L Sudbring 11/16/2022 1 [employer] - [employer]IME (MEDICARE REPLACEMENT/ ADVANTAGE - HMO) [id number] Alyssa L Sudbring [id number] Alyssa L Sudbring 01/29/2023 1 [employer] - PRIME (MEDICARE REPLACEMENT/ ADVANTAGE - HMO) [id number] Alyssa L Sudbring [id number] Alyssa L Sudbring 06/25/2023 1 [employer] - PRIME (MEDICARE REPLACEMENT/ ADVANTAGE - HMO) [id number] Alyssa L Sudbring [id number] Alyssa L Sudbring Notes Date Note Type Note Provider Name and Address Organization Details Recorded Time 01/29/2023 text/html Patient returns complaining of right knee pain. She has known [id number]-[id number]-[id number] changes in the medial and patellofemoral compartments she is considering total knee arthroplasty. She is getting ready to go out of town on a trip she states her knees really bothering her quite a bit. She states she has pain about a 9 on a scale 1-10 walks with a limp keeps her awake at night occasionally. She has aching pain with any activity. Denies any erythema effusion or signs of infection no new trauma or injury really no new symptoms or complaints chronic pain due to the osteoarthritis. She has had the other knee partially replaced and is happy with this she would like to proceed with the right side. I have told her she has to wait at least 3 months after cortisone injection before this could be done. AMBROCIO Art [address] [facility] [facility] [address], [place], [address], [facility] 01/29/2023 14:07:03 OBGyn Episode No OBEpisode recorded.
--- OUTSIDE RECORDS SUMMARY | 2024-08-09 16:23 | XMS_ITS | Encounter Summary ---
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 [place] [address] Scanned, Documents Social History Tobacco Use Types Packs/Day Years Used Date Smoking Tobacco: Never Smokeless Tobacco: Never Alcohol Use Standard Drinks/Week Comments No 0 (1 standard drink = 0.6 oz pur e alcohol) Comments Unknown Sex and Gender Information Value Date Recorded Sex Assigned at Female 06/13/2024 4:15 AM RN SUPPLEMENTAL Legal Sex Female 11:10 PM CDT Gender Identity Not on file Sexual Orientation Not on file documented as of this encounter Progress Notes * Zscanned, Documents - 06/17/2018 12:00 AM CST ALYSSA FARIA MD: ACCT: [id number] ADMIT/SERVICE DATE: 04/04/18 DISCHARGE DATE: 05/06/18 : 1950 PT TYPE: DIS RCR SEX: F ORD SITE: [facility] CHART DOCUMENT REHABILITATION DISCHARGE SUMMARY THIS PATIENT WAS SEEN FROM 03/22/18 THROUGH 04/04/18 FOR A TOTAL OF FOUR VISITS. REASON FOR DISCONTINUATION OF SERVICE: SATISFACTORY GOAL ACHIEVEMENT. CURRENT PHYSICAL/FUNCTIONAL STATUS: AT PATIENT'S LAST VISIT, SHE REPORTED THAT HER SHOULDER WAS FEELING MUCH BETTER. SHE DID VERBALIZE COMPLIANCE WITH HER HOME EXERCISE PROGRAM. SHE ALSO REPORTED THAT SHE HAD SAT IN A HARD CHAIR THE PREVIOUS DAY AND DID NOTE SOME BUTTOCK PAIN BUT IT HAD IMPROVED. SHE DID CONTINUE TO HAVE TIGHTNESS NOTED WITH THE PIRIFORMIS STRETCH BUT NO INCREASE IN SYMPTOMS WITH THE EXERCISES. PATIENT WAS GIVEN INSTRUCTIONS IN A HOME EXERCISE PROGRAM WHICH SHE WAS INDEPENDENT WITH. DEGREE OF GOAL ACHIEVEMENT: PATIENT AT LEAST PARTIALLY MET GOALS #1 AND #3 FOR DECREASED SHOULDER AND BUTTOCK PAIN. GOAL #2 WAS NOT RE-ASSESSED SECONDARY TO UNPLANNED DISCHARGE. GOAL #4 WAS ALSO NOT RE-ASSESSED. GOAL #5 WAS MET. DISCHARGE PLAN: THIS PATIENT WAS DISCHARGED FROM PT PER HER REQUEST SHE WAS FEELING BETTER AND PATIENT DID NOT CALL TO SCHEDULE FURTHER VISITS. ELECTRONICALLY SIGNED BY ROD STONER P.T. 06/17/2018 05:05 P BM/RC JOB NO: [id number] DOC NO: [id number] 06/17/2018 06/17/2018 03:24 P CC: SUPPLEMENTAL documented in this encounter Plan of Treatment Not on file documented as of this encounter Visit Diagnoses Not on filedocumented in this encounter Care Teams Equity Analyst Relationship Specialty Start Date End Date Ariel Pinto MD PCP - General INTERNAL MEDICINE 05/03/16 10/11/22 Clarence Sanchez DO [address] [facility] [address] [place] [address] PCP - General FAMILY PRACTICE 10/12/22 06/12/24 Jay Lynn MD [address] [place] [address] PCP - General INTERNAL MEDICINE 06/13/24 Saw Lopes MD Three [facility]. [address] [address] [place] Body Artist CARDIOVASCULAR DISEASE 08/31/16 documented as of this encounter
--- OUTSIDE RECORDS SUMMARY | 2024-08-09 16:24 | XMS_ITS | Referral Summary ---
Author Organization [facility] Address [address] [place] [id number] Care Team Providers Care Audio Production Instructor Name Role Phone Josiah Baker MD Primary Care Provider [phone] Allergies No known active allergies Medications gabapentin (NEURONTIN) 300 mg capsuleIndicatio ns:Neuropathic Pain Take 600 mg by mouth 3 (three) times a day 9 Active lovastatin (MEVACOR) 40 mg tabletIndication s:hypercholester olemia Take 40 mg by mouth nightly 9 Active lisinopril (PRINIVIL,ZESTRI L) 20 mg tabletIndication s:hypertension Take 20 mg by mouth every morning Active DULoxetine DR (CYMBALTA) 30 mg capsuleIndicatio ns:Neuropathic Pain Take 30 mg by mouth every morning Active levothyroxine (SYNTHROID, LEVOTHROID) 125 mcg tabletIndication s:hypothyroidism Take 125 mcg by mouth managed care coordinator before breakfast Active pyridoxine (VITAMIN B-6) 100 mg tablet Take 100 mg by mouth every morning supplement Active cyanocobalamin (Vitamin B-12) 1,000 mcg sublingual tabletIndication s:Prevention of Vitamin B12 Deficiency Take 1,000 mcg by mouth every morning Active Lactobacillus acidophilus (PROBIOTIC ORAL) Take 1 tablet by mouth daily with dinner Supplement Active coenzyme Q10 100 mg capsule Take 100 mg by mouth daily with dinner supplement Active cholecalciferol (VITAMIN D3) 2,000 unit capsuleIndicatio ns:Vitamin D Deficiency Take 2,000 Units by mouth daily with dinner Active aspirin 325 mg enteric coated tabletIndication s:Deep Vein Thrombosis Prevention Take 1 tablet (325 mg total) by mouth 2 (two) times a day Take for 2 weeks. 28 tablet 9 Active acetaminophen (TYLENOL) 325 mg tabletIndication s:Pain Take 2 tablets (650 mg total) by mouth every 6 (six) hours as needed for pain 100 tablet 1 9 Active docusate sodium (COLACE) 100 mg capsuleIndicatio ns:constipation Take 1 capsule (100 mg total) by mouth 2 (two) times a day HOLD if having diarrhea or loose stools. 30 capsule 1 9 Active oxyCODONE (ROXICODONE) 5 mg immediate release tabletIndication s:Pain Take 1-2 tablets (5-10 mg total) by mouth every 4 (four) hours as needed for pain 40 tablet 9 Active Active Problems Problem Noted Date Diagnosed Date Hypertension 09/07/2018 Hyperlipidemia 09/07/2018 Hypothyroidism 09/07/2018 Complete tear of right rotator cuff 06/08/2018 Overview (06/08/2018): Added automatically from request for surgery [id number] Social History Tobacco Use Types Packs/Day Years Used Date Smoking Tobacco: Never Smokeless Tobacco: Never Alcohol Use Standard Drinks/Week Comments Never 0 (1 standard drink = 0.6 oz pur e alcohol) AUDIT-C Answer Date Recorded Frequency of Alcohol Consumption Never 08/23/2018 Average Number of Drinks Not on file 019 Frequency of Binge Drinking Not on file 08/02 Comments No Sex and Gender Information Value Date Recorded Sex Assigned at Not on file 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 Gender Identity Female 10/11/2019 12:51 PM CDT Sexual Orientation Don't know 12/30/2021 9: 43 PM CDT Sexual Orientation Straight 12/30/2021 9: 43 PM CDT Last Filed Vital Signs Vital Sign Reading Time Taken Comments Blood Pressure 114/68 09/09/2018 8:13 AM CDT Pulse 77 09/09/2018 8:13 AM CDT Temperature 37 C (98.6 F) 09/09/2018 7:22 AM CDT Respiratory Rate 16 09/09/2018 7:22 AM CDT Oxygen Saturation 91% 09/09/2018 8:13 AM CDT Inhaled Oxygen Concentration - - Weight 76.2 kg (168 lb) 09/08/2018 5:54 AM CDT Height 165.1 cm (5' 5 ) 09/08/2018 5:54 AM CDT Body Mass Index 27.96 09/08/2018 5:54 AM CDT Plan of Treatment Not on file Medical Devices Implanted Type Area Meat Selector Device Identifier Shelf Expiration Date Model / Serial / Lot [employer] [id number] 25mm Reverse Shoulder Baseplate Glenoid Trabecular Metal - [id number] Implanted:Qty: 1 on 09/08/2018 by Wily Butler MD at [facility] Plate Right: Shoulder [employer] [id number] 07/31/2028 [id number] / / [id number] [employer] [id number] Ncb Anatomical Shoulder 4.5mm 36mm Inverse Reverse Lock Self Tap - [id number] Implanted:Qty: 1 on 09/08/2018 by Wily Butler MD at [facility] Screw Right: Shoulder [employer] [id number] 06/02/2023 [id number] / / [id number] [employer] [id number] Ncb Anatomical Shoulder 4.5mm 36mm Inverse Reverse Lock Self Tap - [id number] Implanted:Qty: 1 on 09/08/2018 by Wily Butler MD at [facility] Screw Right: Shoulder [employer] [id number] 06/02/2023 [id number] / / [id number] [employer] [id number] 36mm Reverse Shoulder Sphere Glenoid Trabecular Metal - [id number] Implanted:Qty: 1 on 09/08/2018 by Wily Butler MD at [facility] Right: Shoulder [employer] [id number] 06/02/2028 [id number] / / [id number] [employer] [id number] 12mm 130mm Shoulder Stem Humeral Trabecular Metal Tivanium - [id number] Implanted:Qty: 1 on 09/08/2018 by Wily Butler MD at [facility] [employer] [id number] 08/30/2028 [id number] / / [id number] [employer] [id number] 36mm Retentive Humerus 12d 65d +0mm Liner Shoulder Trabecular - [id number] Implanted:Qty: 1 on 09/08/2018 by Wily Butler MD at [facility] [employer] [id number] 04/01/2025 [id number] / / [id number] Insurance MEDICARE [facility] MEDICARE [facility] * Guarantor: [facility] Account Type Relation to Patient Date of Phone Billing Address Workers Comp Employer WORKERS COMPENSATION GENERIC Advance Directives For more information, please contact: [phone] * Full Code (Latest Code Status on File) Date Activated Date Inactivated Comments 09/08/2018 11:24 AM 09/09/2018 2:58 PM Care Teams Audio Production Instructor Relationship Specialty Start Date End Date Josiah Baker MD [address] [place] [address] PCP - General Orthopedic Surgery 06/08/18
--- OUTSIDE RECORDS SUMMARY | 2024-08-09 16:24 | XMS_ITS | Encounter Summary ---
Author Organization [facility] Address [address] [place] [address] Care Team Providers Care Chocolate Temperer Name Role Phone Ariel Pinto MD Primary Care Provider U Saw Victor MD Unavailable [phone] Clarence Sanchez DO Primary Care Provider [phone] Jay Lynn MD Primary Care Provider [phone] Encounter Details Date Type Department Care Team (Late st Contact Info) Description 09/03/2016 Abstract [facility] AT [address] [address] Chantal Galan MA Social History Tobacco Use Types Packs/Day Years Used Date Smoking Tobacco: Never Smokeless Tobacco: Never Alcohol Use Standard Drinks/Week Comments No 0 (1 standard drink = 0.6 oz pur e alcohol) Comments Unknown Sex and Gender Information Value Date Recorded Sex Assigned at Female 06/13/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 Legal Sex Female 11:10 PM CDT Gender Identity Not on file Sexual Orientation Not on file documented as of this encounter Plan of Treatment Not on file documented as of this encounter Procedures Procedure Name Priority Date/Time Associated Diagnosis Comments CBC (OUTSIDE LAB) Routine 08/27/2016 BASIC METABOLIC PANEL Routine 08/27/2016 COMPREHENSIVE METABOLIC PANEL Routine 02/19/2016 LIPID PANEL Routine 02/19/2016 LIPID PANEL Routine 02/19/2016 HEMOGLOBIN, GLYCOSYLATED Routine 02/19/2016 THYROID STIM HORMONE TSH Routine 02/19/2016 documented in this encounter Results * CBC (OUTSIDE LAB) (08/27/2016) WBC 9.1 HGB 14.1 HCT 42.6 PLT 222 08/27/2016 us Doc [facility] Abstract LAB-OUTSIDE/ABSTRACTED Final Result * BASIC METABOLIC PANEL (08/27/2016) SODIUM S/P/B 142 POTASSIUM S/P/B 4.3 CO2 26 CHLORIDE S/P/B 105 GLUCOSE 93 CALCIUM S/P/B 9.5 BUN 32 CREATININE S/P/B 0.9 0.5 - 1.0 EGFR NON-AFR. AMER. >90 <=90 08/27/2016 us Doc [facility] Abstract LABORATORY Final Result * THYROID STIM HORMONE, TSH (02/19/2016) TSH 0.56 02/19/2016 us Doc [facility] Abstract LABORATORY Final Result * LIPID PANEL (02/19/2016) CHOLESTEROL 168 HDL 42 TRIGLYCERIDES 137 LDL (CALCULATED) 98.6 02/19/2016 us Doc [facility] Abstract LABORATORY Final Result * HEMOGLOBIN, GLYCOSYLATED (02/19/2016) HGB A1C 5.8 02/19/2016 us Doc [facility] Abstract LABORATORY Final Result * COMPREHENSIVE METABOLIC PANEL (02/19/2016) SODIUM S/P/B 145 POTASSIUM S/P/B 4.0 CO2 26 CHLORIDE S/P/B 114 GLUCOSE 101 CALCIUM S/P/B 9.0 BUN 22 CREATININE S/P/B 0.76 0.5 - 1.0 EGFR NON-AFR. AMER. >60 <=90 ALKALINE PHOSPHATASE S/P/B 67 ALT 19 AST 20 BILIRUBIN TOTAL S/P/B 0.5 ALBUMIN S/P/B 3.7 3.5 - 5.0 TOTAL PROTEIN S/P/B 5.5 02/19/2016 us Doc [facility] LABORATORY Final Result * LIPID PANEL (02/19/2016) CHOLESTEROL 168 HDL 42 TRIGLYCERIDES 137 LDL (CALCULATED) 98.6 02/19/2016 us Doc [facility] LABORATORY Final Result documented in this encounter Visit Diagnoses Not on filedocumented in this encounter Care Teams Chocolate Temperer Relationship Specialty Start Date End Date Ariel Pinto MD PCP - General INTERNAL MEDICINE 05/03/16 10/11/22 Clarence Sanchez DO [facility] [address] [place] [address] PCP - General FAMILY PRACTICE 10/12/22 06/12/24 Jay Lynn MD [address] [facility] [address] [place] [address] PCP - General INTERNAL MEDICINE 06/13/24 Saw Lopes MD Three [facility]. [facility] [address] [place] [address] Thuy System Developer Associate Manager CARDIOVASCULAR DISEASE 08/31/16 documented as of this encounter
--- OUTSIDE RECORDS SUMMARY | 2024-08-09 16:24 | XMS_ITS | Clinical Summary ---
Author Organization [facility] Address [address] [place] [address] Care Team Providers Care Director Of Cardiology Service Line Name Role Phone Saw Lopes MD Unavailable [phone] Jay Lynn MD Primary Care Provider [phone] Allergies No known active allergies Medications Lactobacillus (PROBIOTIC ACIDOPHILUS) Tab Take 1 tablet by mouth every morning. 7 Active Coenzyme Q10 (COQ-10) 100 MG Cap Take 1 capsule by mouth every morning. 7 Active vitamin D3, cholecalciferol , 1000 UNIT Tab tablet Take 2 tablets (2,000 Units total) by mouth every morning. 7 Active diphenhydrAMINE -APAP 25-500 MG Tab tablet Take 1 tablet by mouth nightly at bedtime. 7 Active Cyanocobalamin (VITAMIN B-12) [address] under the tongue daily. 8 Active Pyridoxine HCl (B-6) 100 MG Tab Take 1 tablet by mouth daily. 8 Active lovastatin 40 MG tabletIndicatio ns:Dyslipidemia Take 1 tablet (40 mg total) by mouth nightly at bedtime. 90 tablet 1 9 Active LISINOPRIL 20 MG tabletIndicatio ns:Hypertension , essential TAKE 1 TABLET BY MOUTH ONCE DAILY 90 tablet 1 9 Active gabapentin 600 MG tabletIndicatio ns:Idiopathic peripheral neuropathy Take 2 tablets (1,200 mg total) by mouth 2 (two) times daily. 180 tablet 07/29/201 9 Active docusate sodium (COLACE) 100 MG capsule Take 1 capsule (100 mg total) by mouth 2 (two) times daily. Active celecoxib (CELEBREX) 200 MG capsule Take 1 capsule (200 mg total) by mouth daily. 3 Active levothyroxine (SYNTHROID) 88 MCG tablet Take 1 tablet (88 mcg total) by mouth every morning. 3 Active DULoxetine (CYMBALTA) 60 MG capsule Take 1 capsule (60 mg total) by mouth daily. 3 Active HYDROcodone-irena taminophen (NORCO) 5-325 MG tabletIndicatio ns:Acute Pain < 7 Day Supply Take 1-2 tablets by mouth every 6 (six) hours as needed for Pain. Indications: Acute Pain < 7 Day Supply 30 tablet 3 Active Additional Information Patient not taking.Reported on 04/15/2023 diazePAM (VALIUM) 2 MG tabletIndicatio ns:Vertigo Take 1 tablet (2 mg total) by mouth every 8 (eight) hours as needed (dizziness). 60 tablet 5 Active Active Problems Problem Noted Date Diagnosed Date Unspecified fall, initial encounter 11/17/2022 Unspecified abnormalities of gait and mobility 0 11/17/2022 Varicose veins of bilateral lower extremities wi th pain 09/17/2022 Overview (09/17/2022): Added automatically from request for surgery [id number] Complete tear of right rotat or cuff, unspecified whether traumatic 10/10/2018 Mild vitamin D deficiency 03/22/2017 GERD (gastroesophageal reflux disease) 7 Peripheral neuropathy 02/18/2016 Hyperlipidemia 11/16/2012 Hypothyroidism 11/16/2012 Osteoarthrosis 10/31/2012 Dyslipidemia Hypertension, essential Encounters Date Type Department Care Team Description 06/13/2024 4:[address] [facility] - 06/13/2024 7:27 AM [facility] Emergency [facility] Emergency Room [address] [place] [address] Vasu Perea MD Dizziness Discharge Disposition: Home or Self Care (Routine Discharge) from Last 3 Months Immunizations Name Administration Dates Next Due Fluzone High Dose - >Age 65 (Prefilled Syringe) 01/24/2018,01/25/2017 Family History Medical History Relation Comments Heart Attack Maternal Grandmother Open Heart Maternal Grandmother Heart Attack Mother Open Heart Mother Heart Attack Paternal Grandmother Open Heart Paternal Grandmother Breast Cancer Sister 1 Stomach cancer Sister 2 Relation Status Comments Maternal Grandmother Mother Paternal Grandmother Sister 1 Sister 2 Social History Tobacco Use Types Packs/Day Years Used Date Smoking Tobacco: Never Smokeless Tobacco: Never Tobacco Cessation:Counseling Given: Not Answered Alcohol Use Standard Drinks/Week Comments No 0 (1 standard drink = 0.6 oz pur e alcohol) PHQ-2 Answer Date Recorded Patient Health Questionnaire-2 Score 0 10/22/2022 Education Answer Date Recorded What is the highest level of school you have completed or the highest degree you have received? Some college, no degree 07/27/2018 Comments No Sex and Gender Information Value Date Recorded Sex Assigned at Female 06/13/2024 4:[address] [facility] Legal Sex Female 11:10 PM CDT Gender Identity Not on file Sexual Orientation Not on file Last Filed Vital Signs Vital Sign Reading Time Taken Comments Blood Pressure 134/76 06/13/2024 7:[address] [facility] Pulse 76 06/13/2024 7:[address] [facility] Temperature 36.4 C (97.6 F) 06/13/2024 7:[address] [facility] Respiratory Rate 19 06/13/2024 7:[address] [facility] Oxygen Saturation 99% 06/13/2024 7:[address] [facility] Inhaled Oxygen Concentration - - Weight 74.8 kg (165 lb) 06/13/2024 4:[address] [facility] Height 167.6 cm (5' 6 ) 06/13/2024 4:[address] [facility] Body Mass Index 26.63 06/13/2024 4:[address] [facility] Plan of Treatment Health Maintenance Due Date Last Done Comments Hepatitis C 10/15/1967 DTaP, Tdap and Td Vaccines ( 1 - Tdap) 1968 Zoster Vaccines (1 of 2) 10/15/1999 Annual Medicare Wellness Visit 2014 Dexa Scan (General) 2014 Pneumococcal Vaccine: 65+ Years (1 of 1 - PCV) 2014 Colorectal Cancer Screening Colonoscopy (10 Years) 06/19/2021 06/19/2011 COVID-19 Vaccine (1 - 2023-2 5 season) 2024 RSV Immunization or 60+ Years (1 - 1-dose 75+ series) 2024 Mammogram Screening 11/10/2024 11/10/2022, 02/24/2017 Meningococcal B Vaccine Aged Out No l onger eligible based on patient's age to complete this topic Meningococcal Vaccine Aged Out No humera ward eligible based on patient's age to complete this topic RSV Immunizations Under 20 Months Aged Out No longer eligible b ased on patient's age to complete this topic Procedures Procedure Name Priority Date/Time Associated Diagnosis Comments CT ABD+PEL W CON STAT 06/13/2024 6:[address] [facility] CTA HEAD+NECK STAT 06/13/2024 6:[address] [address] HEAD WO CON STAT 06/13/2024 6:[address] [facility] URINALYSIS, AUTO, COMPLETE STAT 06/13/2024 4:[address] [facility] ECG 12-LEAD Routine 06/13/2024 4:[address] [facility] LIPASE Routine 06/13/2024 4:[address] [facility] PRO-BRAIN NATRIURETIC PEPTIDE STAT 06/13/2024 4:[address] [facility] TROPONIN, QUANT STAT 06/13/2024 4:[address] [facility] COMPREHENSIVE METABOLIC PANEL STAT 06/13/2024 4:[address] [facility] CBC W/DIFF AUTOMATED STAT 06/13/2024 4:[address] [facility] MG SCREENING W JUDITH SHILA DIGI Routine 11/10/2022 11:36 AM CDT Encounter for screening mammogram for malignant neoplasm of breast COLONOSCOPY Routine 06/19/2011 12:[address] [facility] from Last 3 Months or Most Recently Relevant to Health Maintenance Results * CTA HEAD+NECK (06/13/2024 6:[address] [facility]) Anatomical Region Laterality Modality Head, Neck Computed Tomogra phy 06/13/2024 6:[address] [facility] Impressions 06/13/2024 6:[address] [facility] IMPRESSION: 1. No significant stenosis or occlusion of major intracranial arteries near [place]. 2. 50% stenosis of the left ICA 6 mm above the origin. 3. Less than 20% stenosis of the right ICA. Referred By: Interpreted By: Luis Miguel Thompson MD, 06/13/2024 6:19 AM Narrative 06/13/2024 6:[address] [facility] [address] [place] [address] Examination: CTA of the head and neck Exam Date/Time: 06/13/2024 5:33 AM Reason For Exam: vertigo Diarrhea and dizziness Comparison: None Technique: CT angiography of the head and neck was performed after intravenous injection of 80 cc Isovue-370. Additional 3-D reconstructions and postprocessing were performed independently by the radiologist on a separate dedicated 3-D workstation. A dose lowering technique was used for this procedure, which may include, but is not limited to, dose reduction technique, automated exposure control, iterative reconstruction, ALARA (As Low As Reasonably Achievable), or Image Gently techniques. NASCET guidelines utilized for ICA stenosis grading. Findings: CTA HEAD: Vertebral arteries are codominant. Vertebral arteries, basilar artery, and posterior cerebral arteries are normal in caliber throughout without focal stenosis or aneurysmal dilatation. Calcifications in the bilateral cavernous portions of the internal carotid arteries with only minimal narrowing noted. Remainder of internal carotid arteries, middle cerebral arteries, and anterior cerebral arteries are normal in caliber throughout. No evidence of intracranial vascular malformation. Late bolus timing imaging acquisition with venous contamination. No sinus thrombosis appreciated. CTA neck: Left aortic arch. Origins of the great vessels from the arch are widely patent. Visualized portions of bilateral subclavian arteries and brachiocephalic artery are patent. Peripheral calcifications are noted at the bilateral carotid bulbs. On the left there is up to 50% stenosis 6 mm above the origin of the ICA. On the right is less than 20% stenosis. Remainder of common carotid arteries, internal carotid arteries, and external carotid arteries are widely patent. Vertebral arteries are codominant. Origins are poorly seen due to streak artifact from shoulder hardware. Remainder vertebral arteries are normal in caliber throughout. Procedure Note Luis Miguel Thompson MD - 06/13/2024 [facility] [address] [place] [address] Examination: CTA of the head and neck Exam Date/Time: 06/13/2024 5:33 AM Reason For Exam: vertigo Diarrhea and dizziness Comparison: None Technique: CT angiography of the head and neck was performed afterintravenous injection of 80 cc Isovue-370. Additional 3-D reconstructionsand postprocessing were performed independently by the radiologist on aseparate dedicated 3-D workstation. A dose lowering technique was used forthis procedure, which may include, but is not limited to, dose reductiontechnique, automated exposure control, iterative reconstruction, ALARA (AsLow As Reasonably Achievable), or Image Gently techniques. NASCETguidelines utilized for ICA stenosis grading. Findings: CTA HEAD: Vertebral arteries are codominant. Vertebral arteries, basilarartery, and posterior cerebral arteries are normal in caliber throughoutwithout focal stenosis or aneurysmal dilatation. Calcifications in thebilateral cavernous portions of the internal carotid arteries with onlyminimal narrowing noted. Remainder of internal carotid arteries, middlecerebral arteries, and anterior cerebral arteries are normal in caliberthroughout. No evidence of intracranial vascular malformation. Latebolus timing imaging acquisition with venous contamination. No sinusthrombosis appreciated. CTA neck: Left aortic arch. Origins of the great vessels from the archare widely patent. Visualized portions of bilateral subclavian arteriesand brachiocephalic artery are patent. Peripheral calcifications arenoted at the bilateral carotid bulbs. On the left there is up to 50%stenosis 6 mm above the origin of the ICA. On the right is less than 20%stenosis. Remainder of common carotid arteries, internal carotidarteries, and external carotid arteries are widely patent. Vertebralarteries are codominant. Origins are poorly seen due to streak artifactfrom shoulder hardware. Remainder vertebral arteries are normal incaliber throughout. IMPRESSION: 1. No significant stenosis or occlusion of major intracranial arteriesnear [place]. 2. 50% stenosis of the left ICA 6 mm above the origin. 3. Less than 20% stenosis of the right ICA. Referred By: Interpreted By: Luis Miguel Thompson MD, 06/13/2024 6:19 AM Vasu Perea MD CT Final Result * CT HEAD WO CON (06/13/2024 6:[address] [facility]) Anatomical Region Laterality Modality Head Computed Tomogra phy 06/13/2024 6:[address] [facility] Impressions 06/13/2024 6:[address] [facility] IMPRESSION: ===== 1. No acute intracranial abnormalities. 2. Atrophy and small vessel ischemic disease. Superimposed acute infarct not excluded. Referred By: Interpreted By: Luis Miguel Thompson MD, 06/13/2024 6:16 AM Narrative 06/13/2024 6:[address] [facility] [address] [place] [address] EXAMINATION: CT of the head EXAM DATE/TIME: 06/13/2024 5:33 AM REASON FOR EXAM: vertigo Diarrhea and dizziness COMPARISON: Head CT 10/26/2022 TECHNIQUE: Axial CT images of the brain are obtained from skull base through vertex without the use of IV contrast agent. A dose lowering technique was used for this procedure, which may include, but is not limited to, dose reduction technique, automated exposure control, iterative reconstruction, ALARA (As Low As Reasonably Achievable), or Image Gently techniques. FINDINGS: No acute hemorrhage or large territory infarct. Ventricles are moderately enlarged with prominent bilateral sulci indicating moderate parenchymal volume loss. There are scattered areas of hypodensities in the periventricular deep white matter which are nonspecific but likely secondary to moderate small vessel ischemic disease. There are no extra-axial fluid collections. There is no mass, mass effect, or midline shift. There is no depressed skull fracture. Visualized paranasal sinuses and mastoid air cells are clear. Visualized orbital contents are unremarkable. ===== Procedure Note Luis Miguel Thompson MD - 06/13/2024 [facility] [address] [place] [address] EXAMINATION: CT of the head EXAM DATE/TIME: 06/13/2024 5:33 AM REASON FOR EXAM: vertigo Diarrhea and dizziness COMPARISON: Head CT 10/26/2022 TECHNIQUE: Axial CT images of the brain are obtained from skull basethrough vertex without the use of IV contrast agent. A dose loweringtechnique was used for this procedure, which may include, but is notlimited to, dose reduction technique, automated exposure control,iterative reconstruction, ALARA (As Low As Reasonably Achievable), orImage Gently techniques. FINDINGS: No acute hemorrhage or large territory infarct. Ventricles aremoderately enlarged with prominent bilateral sulci indicating moderateparenchymal volume loss. There are scattered areas of hypodensities inthe periventricular deep white matter which are nonspecific but likelysecondary to moderate small vessel ischemic disease. There are noextra-axial fluid collections. There is no mass, mass effect, or midlineshift. There is no depressed skull fracture. Visualized paranasalsinuses and mastoid air cells are clear. Visualized orbital contents areunremarkable. ===== IMPRESSION: ===== 1. No acute intracranial abnormalities. 2. Atrophy and small vessel ischemic disease. Superimposed acute infarctnot excluded. Referred By: Interpreted By: Luis Miguel Thompson MD, 06/13/2024 6:16 AM Vasu Perea MD CT Final Result * CT ABD+PEL W CON (06/13/2024 6:[address] [facility]) Anatomical Region Laterality Modality Abdomen Computed Tomogra phy 06/13/2024 6:[address] [facility] Impressions 06/13/2024 6:[address] [facility] Impression: 1. There is mild gastric mucosal enhancement, nonspecific, but which could be seen with gastritis. 2. Cholelithiasis. 3. There is a small partially exophytic hypodense lesion in the left lateral renal midpole which is technically indeterminate but probably represents a complex cyst. Scheduled nonemergent renal ultrasound is recommended for further evaluation. Referred By: Interpreted By: Mike Faria MD, 06/13/2024 6:14 AM Narrative 06/13/2024 6:[address] [facility] [address] [place] [address] Examination: CT ABD+PEL W CON Exam time: 06/13/2024 5:33 AM Indication: Diarrhea Comparison:CT abdomen and pelvis 12/18/2011 Technique: IV contrast: 100 mL Isovue 370. Right antecubital fossa Oral contrast: None. Technical comments: Standard technique. Dose reduction: This CT exam was performed using one or more of the following dose reduction techniques: Automated exposure control, adjustment of the mA and/or kV according to patient size, and/or use of iterative reconstruction technique. Findings: There is mild atelectasis in the lung bases. The liver and spleen are unremarkable. There is mild gastric mucosal enhancement, nonspecific, but which could be seen with gastritis. Cholelithiasis. The pancreas and adrenal glands are unremarkable. There is a small partially exophytic hypodense lesion in the left lateral renal midpole which is technically indeterminate but probably represents a complex cyst. There is symmetric renal enhancement. No hydronephrosis. No ureteral calculus. There is no calculus in the urinary bladder. There is atherosclerosis of the abdominal aorta without aneurysm. Hysterectomy. There is no evidence for appendicitis. No bowel obstruction or free intraperitoneal air. There is no lymphadenopathy. No acute osseous abnormality. Procedure Note Mike Faria MD - 06/13/[address] [place] [id number] Examination: CT ABD+PEL W CON Exam time: 06/13/2024 5:33 AM Indication: Diarrhea Comparison:CT abdomen and pelvis 12/18/2011 Technique: IV contrast: 100 mL Isovue 370. Right antecubital fossa Oral contrast: None. Technical comments: Standard technique. Dose reduction: This CT exam was performed using one or more of thefollowing dose reduction techniques: Automated exposure control,adjustment of the mA and/or kV according to patient size, and/or use ofiterative reconstruction technique. Findings: There is mild atelectasis in the lung bases. The liver andspleen are unremarkable. There is mild gastric mucosal enhancement,nonspecific, but which could be seen with gastritis. Cholelithiasis. Thepancreas and adrenal glands are unremarkable. There is a small partiallyexophytic hypodense lesion in the left lateral renal midpole which istechnically indeterminate but probably represents a complex cyst. Thereis symmetric renal enhancement. No hydronephrosis. No ureteral calculus.There is no calculus in the urinary bladder. There is atherosclerosis ofthe abdominal aorta without aneurysm. Hysterectomy. There is no evidencefor appendicitis. No bowel obstruction or free intraperitoneal air.There is no lymphadenopathy. No acute osseous abnormality. Impression: 1. There is mild gastric mucosal enhancement, nonspecific, but whichcould be seen with gastritis. 2. Cholelithiasis. 3. There is a small partially exophytic hypodense lesion in the leftlateral renal midpole which is technically indeterminate but probablyrepresents a complex cyst. Scheduled nonemergent renal ultrasound isrecommended for further evaluation. Referred By: Interpreted By: Mike Faria MD, 06/13/2024 6:14 AM Vasu Perea MD CT Final Result * (ABNORMAL) Urinalysis, Auto, Complete (06/13/2024 4:[address] [facility]) COLOR (U) YELLOW 06/13/2024 5:[address] [facility] TRANSPARENCY CLEAR 06/13/2024 5:[address] [facility] SPECIFIC GRAVITY (U) 1.015 1.000 - 1.030 06/13/2024 5:45 AM [facility] U PH 7.0 5.0 - 9.0 06/13/2024 5:45 AM [facility] LEUKOCYTES (U) 2+(A) NEGATIVE 06/13/2024 5:45 AM [facility] NITRITES NEGATIVE NEGATIVE 06/13/2024 5:45 AM [facility] PROTEIN RANDOM (U) NEGATIVE NEGATIVE 06/13/2024 5:45 AM [facility] GLUCOSE (U) NEGATIVE NEGATIVE 06/13/2024 5:45 AM [facility] KETONES MG/DL (U) NEGATIVE NEGATIVE 06/13/2024 5:45 AM [facility] BILIRUBIN (U) NEGATIVE NEGATIVE 06/13/2024 5:45 AM [facility] BLOOD (U) NEGATIVE NEGATIVE 06/13/2024 5:45 AM [facility] WBC/HPF 5-10 0 - 5 /HPF 06/13/2024 5:45 AM [facility] RBC/HPF 0-5 0 - 5 /HPF 06/13/2024 5:45 AM [facility] EPI/HPF RARE /HPF 06/13/2024 5:45 AM [facility] URINE SPECIMEN OBTAINED BY CLEAN CATCH PROCEDURE / Unknown 06/13/2024 4:[address] [facility] Vasu Perea MD URINE ORDERABLES Final Result [facility] [address] [place] [address], [place] [phone] * ECG 12 lead (06/13/2024 4:[address] [facility]) 06/13/2024 4:[address] [facility] Narrative [facility] RAD - 06/14/2024 8:[address] [facility] Test Date: 2024-06-13 [facility] Room: [place] [address] Gender: Female Pediatrics Physician: : [id number] Requested By: VASU PEREA Order Number: [id number] Reading MD: Saw Lopes Measurements Intervals Moira Rate: 66 P: 68 WA: 180 QRS: -26 QRSD: 101 T: 13 QT: 392 QTc: 412 Interpretive Statements SINUS RHYTHM LOW QRS VOLTAGE IN PRECORDIAL LEADS [QRS DEFLECTION < 1.0 mV IN CHEST LEADS] POSSIBLE ANTERIOR MYOCARDIAL INFARCTION , OF INDETERMINATE AGE [30 ms Q WAVE IN V3/V4, OR R < 0.2 mV IN V4] Compared to ECG 10/22/2016 14:26:10 Low QRS voltage now present Myocardial infarct finding now present [facility] Procedure Note Saw Lopes MD - 06/14/2024 [facility] Test Date: 2024-06-13 [facility] Department: 85 Room: [place] [address] Gender: Female Pediatrics Physician: : [id number] Requested By: VASU PEREA Order Number: [id number] Reading MD: Saw Lopes Measurements Intervals Moira Rate: 66 P: 68 WA: 180 QRS: -26 QRSD: 101 T: 13 QT: 392 QTc: 412 Interpretive Statements SINUS RHYTHM LOW QRS VOLTAGE IN PRECORDIAL LEADS [QRS DEFLECTION < 1.0 mV IN CHESTLEADS] POSSIBLE ANTERIOR MYOCARDIAL INFARCTION , OF INDETERMINATE AGE [30 ms QWAVE IN V3/V4, OR R < 0.2 mV IN V4] Compared to ECG 10/22/2016 14:26:10 Low QRS voltage now present Myocardial infarct finding now present [facility] us Vasu Perea MD ECG ORDERABLES Final Result Performing Organization Address City/[facility]/ZIP Co de Phone Number [facility] RAD * PRO-BRAIN NATRIURETIC PEPTIDE (06/13/2024 4:[address] [facility]) PRO-B TYPE NATRIURETIC PEPTIDE 85 <125 PG/ML 06/13/2024 4:[address] [facility] Comment: CUT POINTS ESTABLISHED BY [employer] ON NT PROBNP (ICON) STUDY (2006). AGE INDEPENDENT: <300 PG/ML HAS A 99% NEGATIVE PREDICTIVE VALUE FOR EXCLUDING ACUTE CHF <50 YEARS: >450 PG/ML IS CONSISTENT WITH ACUTE CHF 50-75 YEARS: >900 PG/ML IS CONSISTENT WITH ACUTE CHF >75 YEARS: >1800 PG/ML IS CONSISTENT WITH ACUTE CHF IN PATIENTS WITH RENAL INSUFFICIENCY (GFR <60), >1200 PG/ML YIELDS A DIAGNOSTIC SENSITIVITY AND SPECIFICITY OF 89% AND 72% FOR ACUTE CHF. 06/13/2024 4:[address] [facility] us Vasu Perea MD LABORATORY Final Result [facility] [address] [place] [address], * (ABNORMAL) COMPREHENSIVE METABOLIC PANEL (06/13/2024 4:[address] [facility]) GLUCOSE 114(H) 70 - 99 MG/DL 06/13/2024 4:54 AM [facility] BUN 28(H) 7 - 18 MG/DL 06/13/2024 4:54 AM [facility] CREATININE S/P/B 0.88 0.55 - 1.02 MG/DL 06/13/2024 4:54 AM [facility] SODIUM S/P/B 145 136 - 145 MMOL/L 06/13/2024 4:54 AM [facility] POTASSIUM S/P/B 4.0 3.5 - 5.1 MMOL/L 06/13/2024 4:54 AM [facility] CHLORIDE S/P/B 107 100 - 108 MMOL/L 06/13/2024 4:54 AM [facility] CO2 29.0 21 - 32 MMOL/L 06/13/2024 4:54 AM [facility] CALCIUM S/P/B 9.7 8.5 - 10.1 MG/DL 06/13/2024 4:54 AM [facility] BILIRUBIN TOTAL S/P/B 0.7 0.2 - 1.2 MG/DL 06/13/2024 4:54 AM [facility] TOTAL PROTEIN S/P/B 6.7 6.4 - 8.2 G/DL 06/13/2024 4:54 AM [facility] ALBUMIN S/P/B 3.7 3.4 - 5.0 G/DL 06/13/2024 4:54 AM [facility] AST 20 15 - 37 U/L 06/13/2024 4:54 AM [facility] ALT 16 14 - 55 U/L 06/13/2024 4:54 AM [facility] ALKALINE PHOSPHATASE S/P/B 81 50 - 136 U/L 06/13/2024 4:54 AM [facility] ANION GAP 9.0 5 - 15 MMOL/L 06/13/2024 4:54 AM [facility] BUN CREATININE RATIO 31.8(H) 6 - 26 06/13/2024 4:54 AM [facility] A/G RATIO 1.2 1.0 - 2.0 RATIO 06/13/2024 4:54 AM [facility] GFR ESTIMATE 69(L) >90 ML/MIN/1.7 3 M2 06/13/2024 4:54 AM [facility] Comment: NOTE: eGFR is not calculated for patients <18 years of age. This is an estimated GFR calculation using the new CKD EPI creatinine equation without race and so does not require a correction factor for race. This estimated GFR should not be used for calculating drug doses. 06/13/2024 4:[address] [facility] Vasu Perea MD LABORATORY Final Result [facility] [address] [place] [address], * (ABNORMAL) CBC W/DIFF AUTOMATED (06/13/2024 4:[address] [facility]) WBC 8.12 4.4 - 11.0 x10'3/uL 06/13/2024 4:19 AM [facility] RBC 4.64 4.50 - 5.10 x10'6/uL 06/13/2024 4:19 AM [facility] HGB 13.8 12.3 - 15.3 G/DL 06/13/2024 4:19 AM [facility] HCT 42.0 35.9 - 44.6 % 06/13/2024 4:19 AM [facility] MCV 90.5 80.0 - 96.0 FL 06/13/2024 4:19 AM [facility] MCH 29.7 25.3 - 30.9 PG 06/13/2024 4:19 AM [facility] MCHC 32.9 31.0 - 34.1 G/DL 06/13/2024 4:19 AM [facility] RDW 14.3 12.4 - 15.1 % 06/13/2024 4:19 AM [facility] PLT 169 151 - 353 x10'3/uL 06/13/2024 4:19 AM [facility] MPV 9.7 9.6 - 12.0 FL 06/13/2024 4:19 AM [facility] RBC MORPHOLOGY NORMAL 06/13/2024 4:19 AM [facility] PLT MORPH. NORMAL 06/13/2024 4:19 AM [facility] WBC MORPHOLOGY NORMAL 06/13/2024 4:19 AM [facility] LYMPHOCYTES % 20.4 15.8 - 45.0 % 06/13/2024 4:19 AM [facility] NEUTROPHILS % 64.5 42.1 - 71.9 % 06/13/2024 4:19 AM [facility] MONOCYTES % 12.7(H) 5.7 - 12.5 % 06/13/2024 4:19 AM [facility] EOSINOPHILS 2.1 0.0 - 5.6 % 06/13/2024 4:19 AM [facility] BASOPHILS 0.1 0.0 - 1.3 % 06/13/2024 4:19 AM [facility] ABS. NEUTROPHILS 5.23 1.40 - 6.00 x10'3/uL 06/13/2024 4:19 AM [facility] IMMATURE GRANS % 0.2 0.0 - 0.5 % 06/13/2024 4:19 AM [facility] ABS. LYMPHOCYTES 1.66 0.80 - 4.70 x10'3/uL 06/13/2024 4:19 AM [facility] 06/13/2024 4:[address] [facility] Vasu Perea MD LABORATORY Final Result [facility] [address] [place] [address], [place] [phone] * TROPONIN, QUANT (06/13/2024 4:[address] [facility]) TROPONIN I HIGH SENSITIVITY 7 0 - 50 ng/L 06/13/2024 4:[address] [facility] Comment: HIGH DOSES OF BIOTIN, TROPONIN-SPECIFIC AUTOANTIBODIES, AND ANTIBODY THERAPY CONTAINING HAMA MAY INTERFERE WITH THIS TEST RESULT. CORRELATION TO CLINICAL HISTORY AND PRESENTATION RECOMMENDED. 06/13/2024 4:[address] [facility] us Vasu Perea MD LABORATORY Final Result [facility] [address] [place] [address], [place] [phone] * LIPASE (06/13/2024 4:[address] [facility]) Pathologist [facility] LIPASE 49 16 - 77 UNITS/L 06/13/2024 4:[address] [facility] 06/13/2024 4:[address] [facility] us Vasu Perea MD LABORATORY Final Result [facility] [address] [place] [address], [place] [phone] * MG SCREENING W JUDITH SHILA DIGI (11/10/2022 11:36 AM CDT) Anatomical Region Laterality Modality Breast Bilateral Mammography 11/25/2022 12:5 4 PM CDT Narrative 11/25/2022 1:06 PM CDT IMAGING STUDIES: Bilateral screening mammograms with computer-aided detection with 2-D and 3-D imaging. Tomosynthesis. DATE: 11/10/2022 11:00 AM HISTORY: screening mammogram . COMPARISON: 01/04/2019.. 09/01/2021 TISSUE TYPE: FINDINGS: 1. Mild to moderate scattered fibroglandular tissue pattern is present. Benign calcifications. 2. No malignant microcalfcifications, new dominant masses, or architectural distortion. Patient has history of prior breast reduction approximately 50 years ago. Most likely accounts for dystrophic calcification within the posterior and lower left breast 3. No skin thickening or nipple retraction. Axillary regions are within normal limits. IMPRESSION: 1. No mammographic evidence of malignancy. 2. Assessment: ACR BI-RADS 2 - BENIGN FINDING(S) 3 .Routine Screening Bilateral MQSA BI-RADS Categories: Category 0 - needs additional imaging evaluation. Category 1 - negative. Category 2 - benign findings. Category 3 - probably benign findings, but short interval follow-up is recommended. Category 4 - suspicious abnormality and biopsy should be considered though the lesion may well be benign. Category 5 - highly suggestive of malignancy and appropriate action should be taken. Category 6 - known biopsy-proven malignancy A) A negative report should not delay a biopsy if a dominant or clinically suspicious mass is present. B) Adenosis and dense breasts may obscure an underlying neoplasm. C) Study interpreted with computer aided detection. Ordered By: CLARENCE SANCHEZ Interpreted By: Susan Short, 11/25/2022 12:54 PM Clarence Sanchez DO MAMMO Final Result * Colonoscopy (06/19/2011 12:[address] [facility]) 06/19/2011 06/19/2011 Narrative [facility] TO EPIC CONVERSION - 06/19/2011 12:[address] [facility] [address] Documented hx of procedure Procedure Note Puja Bhakta MD - 03/06/2018 Documented hx of procedure us Puja Conversion Md BHAKTA GI PROCEDURE ORDERABLES Final Result [facility] TO [facility] CONVERSION from Last 3 Months or Most Recently Relevant to Health Maintenance Insurance [employer] Advance Directives Documents on File Type Date Recorded Patient Route Sales Person Expl anation Advance Directives and Living Will 10/27/2013 [employer] DIRECTIVES Care Teams Director Of Cardiology Service Line Relationship Specialty Start Date End Date Jay Lynn MD [address] [facility] [address] [place] [address] PCP - General INTERNAL MEDICINE 06/13/24 Saw Lopes MD [address] [address] [facility] Registered Nurse CARDIOVASCULAR DISEASE 08/31/16
--- OUTSIDE RECORDS SUMMARY | 2024-08-09 16:24 | XMS_ITS | Clinical Summary ---
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 breakfast Active pyridoxine (VITAMIN B-6) 100 [...] (06/08/2018): Added automatically from request for surgery [id number] Surgical History Surgery Date Site/Laterality Comments PARTIAL KNEE ARTHROPLASTY 05/03/2015 - 05/02/2016 COLONOSCOPY Medical History Medical History Date Comments Hypertension Osteoarthritis Family History Medical History Relation Name Comments Coronary artery disease Maternal Grandfather Coronary artery disease Mother Relation Name Status Comments Maternal Grandfather Mother Social History Tobacco Use Types Packs/Day Years [...] on file 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 Gender Identity Female 10/11/2019 12:51 PM CDT Sexual Orientation Don't know 12/30/2021 9: 43 PM CDT Sexual Orientation Straight 12/30/2021 9: 43 PM CDT Obstetrics History Last Filed Vital Signs Vital Sign Reading [...] on file Medical Devices Implanted Type Area Certified Marine Mechanic Device Identifier Shelf Expiration Date Model / Serial / Lot [employer] [id number] 25mm Reverse Shoulder Baseplate Glenoid Trabecular Metal - [id number] Implanted:Qty: 1 on 09/08/2018 by Wily Butler MD at [facility] Plate Right: Shoulder [employer] [id number] 07/31/2028 [id number] / / [id number] [employer] [id number] Ncb Anatomical Shoulder 4.5mm 36mm Inverse Reverse Lock Self Tap - [id number] Implanted:Qty: 1 on 09/08/2018 by Wily Butler MD at [facility] Screw Right: Shoulder [employer] [id number] 06/02/2023 [id number] / / [id number] [employer] [id number] Ncb Anatomical Shoulder 4.5mm 36mm Inverse Reverse Lock Self Tap - [id number] Implanted:Qty: 1 on 09/08/2018 by Wily Butler MD at [facility] Screw Right: Shoulder [employer] [id number] 06/02/2023 [id number] / / [id number] [employer] [id number] 36mm Reverse Shoulder Sphere Glenoid Trabecular Metal - [id number] Implanted:Qty: 1 on 09/08/2018 by Wily Butler MD at [facility] Right: Shoulder [employer] [id number] 06/02/2028 [id number] / / [id number] [employer] [id number] 12mm 130mm Shoulder Stem Humeral Trabecular Metal Tivanium - [id number] Implanted:Qty: 1 on 09/08/2018 by Wily Butler MD at [facility] [employer] [id number] 08/30/2028 [id number] / / [id number] [employer] [id number] 36mm Retentive Humerus 12d 65d +0mm Liner Shoulder Trabecular - [id number] Implanted:Qty: 1 on 09/08/2018 by Wily Butler MD at [facility] [employer] [id number] 04/01/2025 [id number] / / [id number] Insurance MEDICARE [facility] MEDICARE [facility] * Guarantor: [facility] Account Type Relation to Patient Date of Phone Billing Address Workers Comp Employer WORKERS COMPENSATION GENERIC Advance Directives For more information, please contact: [phone] * Full Code (Latest Code Status on File) Date Activated Date Inactivated Comments 09/08/2018 11:24 AM 09/09/2018 2:58 PM Care Teams Mba Internship Relationship Specialty Start Date End Date Josiah Baker MD [address] [place] [address] PCP - General Orthopedic Surgery 06/08/18
== END 2024-08-09 14:45 | disposition home or self-care (01) ==
PROVIDERS: PCP Emergency Medicine; Visit Provider Emergency Medicine
DX: J32.9 Chronic sinusitis, unspecified (principal); J34.2 Deviated nasal septum
CPT/HCPCS: 70486

== ENCOUNTER 2024-09-20 09:02 | Outpatient (CLI) | payer MEDICARE, SELFPAY ==
--- NOTE | 2024-09-20 09:09 | ECG_ITS ---
Test Date: 2024-09-20 09:26:13 Measurements Intervals [place] Rate: 60 P: 0 OK: 0 QRS: -33 QRSD: 90 T: 11 QT: 376 QTc: 377 Interpretive Statements SINUS RHYTHM WITH NONCONDUCTED PREMATURE ATRIAL COMPLEXES LEFT AXIS DEVIATION [QRS AXIS < -30] LOW QRS VOLTAGE IN PRECORDIAL LEADS [QRS DEFLECTION < 1.0 mV IN CHEST LEADS] POSSIBLE ANTERIOR MYOCARDIAL INFARCTION , PROBABLY OLD [30 ms Q WAVE IN V3/V4, OR R < 0.2 mV IN V4] ABNORMAL ECG Electronically Signed On 09-20-2024 13:13:40 CDT by Lon Abreu M.D.
--- OUTSIDE RECORDS SUMMARY | 2024-09-20 09:44 | XMS_ITS | Referral Summary ---
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 Gender Identity Female 10/11/2019 12:51 PM CDT [...] on file Medical Devices Implanted Type Area Media Strategist Device Identifier Shelf Expiration Date Model / Serial / Lot [employer] [id number] 25mm Reverse Shoulder Baseplate Glenoid Trabecular Metal - [id number] Implanted:Qty: 1 on 09/08/2018 by Wily Butler MD at [facility] Plate Right: Shoulder [employer] [id number] 07/31/2028 [id number] / / [id number] [employer] [id number] Ncb Anatomical Shoulder 4.5mm 36mm Inverse Reverse Lock Self Tap - [id number] Implanted:Qty: 1 on 09/08/2018 by Wily Butler MD at [facility] Screw Right: Shoulder [employer] [id number] 06/02/2023 [id number] / / [id number] [employer] [id number] Ncb Anatomical Shoulder 4.5mm 36mm Inverse Reverse Lock Self Tap - [id number] Implanted:Qty: 1 on 09/08/2018 by Wily Butler MD at [facility] Screw Right: Shoulder [employer] [id number] 06/02/2023 [id number] / / [id number] [employer] [id number] 36mm Reverse Shoulder Sphere Glenoid Trabecular Metal - [id number] Implanted:Qty: 1 on 09/08/2018 by Wily Butler MD at [facility] Right: Shoulder [employer] [id number] 06/02/2028 [id number] / / [id number] [employer] [id number] 12mm 130mm Shoulder Stem Humeral Trabecular Metal Tivanium - [id number] Implanted:Qty: 1 on 09/08/2018 by Wily Butler MD at [facility] [employer] [id number] 08/30/2028 [id number] / / [id number] [employer] [id number] 36mm Retentive Humerus 12d 65d +0mm Liner Shoulder Trabecular - [id number] Implanted:Qty: 1 on 09/08/2018 by Wily Butler MD at [facility] [employer] [id number] 04/01/2025 [id number] / / [id number] Insurance MEDICARE [facility] MEDICARE [facility] * Guarantor: [facility] Account Type Relation to Patient Date of Phone Billing Address Workers Comp Employer WORKERS COMPENSATION GENERIC Advance Directives For more information, please contact: [phone] * Full Code (Latest Code Status on File) Date Activated Date Inactivated Comments 09/08/2018 11:24 AM 09/09/2018 2:58 PM Care Teams Television Analyzer Relationship Specialty Start Date End Date Josiah Baker MD [address] [place] [address] PCP - General Orthopedic Surgery 06/08/18
--- OUTSIDE RECORDS SUMMARY | 2024-09-20 09:44 | XMS_ITS | Clinical Summary ---
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 Gender Identity Female 10/11/2019 12:51 PM CDT [...] on file Medical Devices Implanted Type Area [place] Attorney Device Identifier Shelf Expiration Date Model / Serial / Lot [employer] [id number] 25mm Reverse Shoulder Baseplate Glenoid Trabecular Metal - [id number] Implanted:Qty: 1 on 09/08/2018 by Wily Butler MD at [facility] Plate Right: Shoulder [employer] [id number] 07/31/2028 [id number] / / [id number] [employer] [id number] Ncb Anatomical Shoulder 4.5mm 36mm Inverse Reverse Lock Self Tap - [id number] Implanted:Qty: 1 on 09/08/2018 by Wily Butler MD at [facility] Screw Right: Shoulder [employer] [id number] 06/02/2023 [id number] / / [id number] [employer] [id number] Ncb Anatomical Shoulder 4.5mm 36mm Inverse Reverse Lock Self Tap - [id number] Implanted:Qty: 1 on 09/08/2018 by Wily Butler MD at [facility] Screw Right: Shoulder [employer] [id number] 06/02/2023 [id number] / / [id number] [employer] [id number] 36mm Reverse Shoulder Sphere Glenoid Trabecular Metal - [id number] Implanted:Qty: 1 on 09/08/2018 by Wily Butler MD at [facility] Right: Shoulder [employer] [id number] 06/02/2028 [id number] / / [id number] [employer] [id number] 12mm 130mm Shoulder Stem Humeral Trabecular Metal Tivanium - [id number] Implanted:Qty: 1 on 09/08/2018 by Wily Butler MD at [facility] [employer] [id number] 08/30/2028 [id number] / / [id number] [employer] [id number] 36mm Retentive Humerus 12d 65d +0mm Liner Shoulder Trabecular - [id number] Implanted:Qty: 1 on 09/08/2018 by Wily Butler MD at [facility] [employer] [id number] 04/01/2025 [id number] / / [id number] Insurance MEDICARE [facility] MEDICARE [facility] * Guarantor: [facility] Account Type Relation to Patient Date of Phone Billing Address Workers Comp Employer WORKERS COMPENSATION GENERIC Advance Directives For more information, please contact: [phone] * Full Code (Latest Code Status on File) Date Activated Date Inactivated Comments 09/08/2018 11:24 AM 09/09/2018 2:58 PM Care Teams Car Washer Relationship Specialty Start Date End Date Josiah Baker MD [address] [place] [address] PCP - General Orthopedic Surgery 06/08/18
--- OUTSIDE RECORDS SUMMARY | 2024-09-20 09:45 | XMS_ITS | Data Portability ---
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 Not available 11/16/2022 [...] patient more than half of that in [id number] conversation mildred Not available 06/25/2023 14:35:48 Plan of Treatment Reminders Order Date Submit Date Provider Last Modified By Organization Details Last Modified Time Details Appointments None recorded. Lab None recorded. Referral None recorded. Procedures injection/a spiration joint/bursa (PROC) - in office procedure, administere d by provider 2023 024 [email or web address] In-Office Order, Internal Use Only DO Not Attach Compendium DO Not Attach Compendium, Do Not Delete/merge, [id number] 14:12:05 injection/a spiration joint/bursa (PROC) - in office procedure, administere d by provider 2022 023 [email or web address] In-Office Order, Internal Use Only DO Not Attach Compendium DO Not Attach Compendium, Do Not Delete/merge, [id number] 3 13:52:56 injection/a spiration joint/bursa (PROC) - in office procedure, administere d by provider 2022 023 [email or web address] In-Office Order, Internal Use Only DO Not Attach Compendium DO Not Attach Compendium, Do Not Delete/merge, [id number] 3 15:49:06 injection/a spiration joint/bursa (PROC) - in office procedure, administere d by provider 2022 023 [email or web address] In-Office Order, Internal Use Only DO Not Attach Compendium DO Not Attach Compendium, Do Not Delete/merge, [id number] 3 13:47:28 Surgeries None recorded. Imaging None recorded. Medication Orders Kenalog 10 mg/mL suspension for injection [address] [facility] [address] [facility] [address], [id number] [place] [address], [address], 4 16:17:18 ropivacaine (PF) 5 mg/mL (0.5 %) injection solution [address] [facility], [address] [place] [address], [address], 4 16:17:18 Kenalog 10 mg/mL suspension for injection [address] [facility] [address], [id number] [place] [address], [address], 4 13:58:35 ropivacaine (PF) 5 mg/mL (0.5 %) injection solution [address] [facility] [address], [id number] [place] [address], [address], 4 13:58:25 Kenalog 10 mg/mL suspension for injection [address] [facility] [address], [address] [place] [address], [address], 4 13:58:35 ropivacaine (PF) 5 mg/mL (0.5 %) injection solution [address] [facility] [address], [address], [address], 4 13:58:25 Kenalog 10 mg/mL suspension for injection [address] [facility], [address] [place] [address], [address], 4 13:58:35 ropivacaine (PF) 5 mg/mL (0.5 %) injection solution [address] [facility], [address] [place] [address], [address], 4 13:58:25 celecoxib 200 mg capsule [address] [facility], [address] [place] [address], [address], 3 15:46:42 Patient TargetsNo targets recorded. Patient InstructionsNo instructions recorded. Reason for Referral None Reported. Results Created Date Observation Date Name Description Value Unit Range Abnormal Flag Note LastModifiedBy Organization Detail LastModifiedTime 05/20/19 23 XR, knee No observ ation record ed. [id number] [facility] [place] [address], [place], [address], 07/01/2022 13:33:11 Result Notes None recorded. Problems Name Problem SNOMED Code Status Onset Date Resolution Date Notes Provider Name and Address Organization Details Recorded Time Peripheral enthesopat hy 254919095 Active Not Available [facility] 3 13:30:25 Prepatella r bursitis 13138059 Active Not Available [facility] 13:30:25 Partial thickness rotator cuff tear 165964355 Active Not Available [facility] 3 13:30:25 Osteoarthr itis of knee 143912397 Active Not Available [facility] 3 13:30:25 Shoulder joint pain 025575787 Active Not Available [facility] 3 13:30:25 Knee pain Active Not Available [facility] 3 13:30:25 Osteoarthr itis 868172164 Active Not Available [facility] 3 13:30:25 Osteoarthr itis of right knee joint 4865242119480 00 Active 2022 ANNY Haas null, [place] [facility] 3 13:45:58 Problem Notes None recorded. Procedures Surgical History None recorded. Imaging Results Imaging Date Name Status LastModified by Organiz ation Details LastModified Time 05/20/2022 XR, knee completed [id number] [facility] [place] [address], [place], [address], 07/01/2022 13:33:11 Procedure Notes None recorded. Medical [...] suspension for injection in office 2023 active [facility]: 0003- 0494- 20 Not Available Not Available [...] administe red by the provider 10/29 completed [facility]: 0409- 4276- 17 Not Available Not Available [...] %) injection solution in office 2023 active [facility] 03608 -064- 01 Not Available Not Available Not [...] Updated DateTime 08/05/2022 165.1 cm ANNY Haas [facility] 08/05/2022 13:45:42 Date Recorded Body height Body mass index (BMI) Body weight Provider Name and Address Organization Details Last Updated DateTime 11/16/2022 162.56 cm 30.7 kg/m2 11178.03 g Magalie Rojas Re[employer]yesAndrés [employer] [facility] 11/16/2022 15:58:43 Date Recorded Body height Body mass index (BMI) Body weight Provider Name and Address Organization Details Last Updated DateTime 01/29/2023 167.64 cm 27.4 kg/m2 67515.7 toño Rojas Re[employer]yesAndrés [employer] [facility] 01/29/2023 13:51:16 Date Recorded Body height Provider Name an d Address Organization Details Last Updated DateTime 06/25/2023 167.64 cm Magalie Rojas Re[employer]yesAndrés [employer] [facility] 06/25/2023 13:52:54 Social History Question Answer Notes LastModified by [employer] Details LastModified Time Tobacco Smoking Status Never Smoker Not Available [facility] 07/01/2022 13:29:38 How Much Tobacco Do You Smoke? No [id number] Information not available 07/01/2022 Sex: Unknown Functional Status Question Answer Note LastModified by [employer] Details LastModified Time What is your level of alcohol consumption? None [id number] Information not available 07/01/2022 Mental Status None recorded. Family History Relationship Description Onset Age of this Age Resolved Age Notes LastModified by Organization Details LastModified Time Mother Heart disease [id number] Not available 07/01/2022 13:29:45 Mother Hypertensive disorder [id number] Not available 07/01/2022 13:29:45 Mother Diabetes mellitus [id number] Not available 07/01/2022 13:29:45 Notes:Family history of hear t disease Medical History Condition Response BLINDNESS N KIDNEY STONES N MRSA N CARPAL TUNNEL SYNDROME N LUNG DISEASE/DISORDER N HISTORY OF DRUG ABUSE N RADIATION / CHEMOTHERAPY N COPD N SPORTS INJURY N ANKLE PAIN N BLOOD DISEASES N SCHIZOPHRENIA N SHINGLES N SHOULDER PAIN N DEPRESSION (INCLUDING POST ) N BOWEL PROBLEMS N STROKE/TIA N ULCERS N KNEE PAIN N BENIGN PROSTATIC HYPERPLASIA N OBESITY N GERD/NAUSEA N ANEURYSM N URINARY/BLADDER/KIDNEY PROBLEMS N CORONARY ARTERY DISEASE (CAD) N ADDICTION CONCERNS N USE OF BLOOD THINNERS N SKIN PROBLEMS N EMPHYSEMA N MUSCLE,JOINT OR BONE PROBLEMS N DVT N STOMACH ULCERS N BLOOD CLOTS N USE OF NSAIDS N CONCUSSION OR SPINAL TRAUMA N NEUROPATHY N AIDS/HIV N FRACTURES N HYPERTENSION Y ELBOW PAIN N TOURETTE'S N Metal allergy N ANXIETY DISORDER N BLOOD TRANSFUSION N ANEMIA/BLOOD DISORDER N BIPOLAR DISORDER N BRONCHITIS N OSTEOARTHRITIS N TUBERCULOSIS N FOOT PROBLEM N HEART VALVE DISORDERS N SOFT TISSUE INJURY N ALLERGIES/HAYFEVER N INFECTIOUS DISEASE N HEART ARRHYTHMIA N INSOMNIA N RHEUMATOID ARTHRITIS N HIGH CHOLESTEROL / HYPERLIPIDEMIA N EDEMA N CHRONIC PAIN SYNDROME N CAROTID BLOCKAGE N BACK / NECK PROBLEMS N HAVE YOU BEEN HOSPITALIZED OR SEEN IN [facility] IN THE PAST YEAR ? [...] SNOMED-CT Code Diagnosis ICD10 Code Diagnosis Note [id number] Josiah Baker MD [facility] [place] [address] [facility] [place] [address] 10/09/2020 00:00:00 10/09/2020 10:12:46 [id number] Josiah Baker MD [facility] [place] [address] [place] [address] 11/20/2020 00:00:00 11/20/2020 14:01:27 [id number] Josiah Baker MD [facility] [place] [address] [place] [address] 01/31/2021 00:00:00 01/31/2021 09:26:35 [id number] Josiah Baker MD [facility] [place] [address] [place] [address] 05/30/2021 00:00:00 05/30/2021 12:07:32 [id number] Josiah Baker MD [facility] [place] [address] [place] [address] 10/29/2021 00:00:00 10/29/2021 16:17:19 [id number] Josiah Baker MD [facility] [place] [address] [place] [address] 03/11/2022 00:00:00 03/11/2022 13:59:11 [id number] MD JUAN CARLOS [facility] [place] [address] [place] [address] 05/20/2022 00:00:00 05/20/2022 14:33:19 [id number] MD JUAN CARLOS [facility] [place] [address] [place] [address] 08/05/2022 13:42:33 08/05/2022 14:22:30 Osteoarthritis of right knee joint 8028603306 40057 M17.11 [id number] Josiah Baker MD [facility] [place] [address] [place] [address] 11/16/2022 15:34:04 11/16/2022 17:04:36 Osteoarthritis of right knee joint 9651687454 72029 M17.11 [id number] Josiah Baker MD [facility] [place] [address] [place] [address] 01/29/2023 13:41:43 01/29/2023 14:18:00 Osteoarthritis of right knee joint 2177651459 26585 M17.11 [id number] MD JUAN CARLOS [facility] [place] [address] [place] [address] 06/25/2023 13:38:21 06/25/2023 14:44:34 Osteoarthritis of right knee joint 2650773308 44494 M17.11 Health Concerns Section Related Observation LastModified by Organization Detai ls LastModified Time None Recorded Concern Status LastModified by Organization Details LastModified Time None Recorded Advance Directives Directive None Recorded Payers Encounter Date Sequence Insurance Name Policy Number Policy Spivey Covered Member ID Spivey Member ID Guarantor Name 08/05/2022 1 [employer] - PRIME (MEDICARE REPLACEMENT/ ADVANTAGE - HMO) [id number] Alyssa L Sudbring [id number] Alyssa L Sudbring 11/16/2022 1 [employer] - PRIME (MEDICARE REPLACEMENT/ ADVANTAGE - HMO) [id number] Alyssa L Sudbring [id number] Alyssa L Sudbring 01/29/2023 1 [employer] - PRIME (MEDICARE REPLACEMENT/ ADVANTAGE - HMO) [id number] Alyssa L Sudbring [id number] Alyssa L Sudbring 06/25/2023 1 [employer] - PRIME (MEDICARE REPLACEMENT/ ADVANTAGE - HMO) [id number] Alyssa L Sudbring [id number] Alyssa L Sudbring Notes Date Note Type Note Provider Name and Address Organization Details Recorded Time 01/29/2023 text/html Patient returns complaining of right knee pain. She has known [id number]-zk-ebny changes in the medial and patellofemoral compartments [...] this could be done. [employer] [address] [facility] [address], [place], [address], [place] [facility] 01/29/2023 14:07:03 OBGyn Episode No OBEpisode recorded.
== END 2024-09-20 09:03 | disposition home or self-care (01) ==
PROVIDERS: PCP Emergency Medicine; Visit Provider Emergency Medicine
DX: R00.2 Palpitations (principal); R94.31 Abnormal electrocardiogram [ECG] [EKG]
CPT/HCPCS: 93005

== ENCOUNTER 2024-10-21 12:20 | Emergency (ER) | payer MEDICARE, SELFPAY ==
--- NOTE | ~2024-10-21 | XR_ITS ---
EXAMINATION: XR knee RT min 4V DATE: 10/21/2024 13:03 INDICATION: Right knee injury post fall TECHNIQUE: Anteroposterior, sunrise, oblique and crosstable lateral views of the right knee were obta ined COMPARISON: None. FINDINGS: Alignment is normal. No fracture. Tricompartmental osteoarthritis at the right knee with severe join t space narrowing the medial compartment and at the medial side of the patellofemoral compartment. No joint effusion/layering lipohemarthrosis. Prepatellar soft tissue swelling. Possible in the subcutan eous fat anterior to the distal quadriceps tendon. IMPRESSION: 1. No right knee joint effusion or acute osseous abnormality. 2. Severe osteoarthritis at the medial and patellofemoral compartments of the right knee. Reviewed, dictated and finalized at location A. IMPRESSION: 1. No right knee joint effusion or acute osseous abnormality. 2. Severe osteoarthritis at the medial and patellofemoral compartments of the r ight knee.
--- NOTE | ~2024-10-21 | CT_ITS ---
CT cervical spine wo con Ordering provider: Zackary Robles MD History: . Fall . Comparison: None. Technique: CT of the cervical spine was performed without contrast. Sagittal and coronal reformatted images were also obtained and reviewed. Automated exposure control and iterative reconstruction nancy hnique were employed. The dose-length product was 681.00 mGy-cm. FINDINGS: VERTEBRAE: No subluxation or acute fracture. The occipital condyles are intact. Degenerative changes of the spine. Small cyst is seen in the right side of the dens. DISC SPACES: Narrowing of the disc C5-C6 and C6-C7. Multilevel degenerative disc disease. Multilevel uncovertebral joint osteoarthritic changes. Narrowing of the right foramen at the level of C3-C4. Bilateral narrowing of the foramina at the leve l of C4-C5 and C5-C6. PARASPINOUS SOFT TISSUES: Bilateral carotid atherosclerotic changes. IMPRESSION: No acute osseous abnormality cervical spine. Multilevel degenerative disc disease. Reviewed, dictated and finalized at location A.
--- NOTE | ~2024-10-21 | XR_ITS ---
XR elbow RT min 3V Ordering provider: Zackary Robles MD History: . Y . Comparison: None. FINDINGS: BONES: No definite acute fracture or dislocation. JOINT SPACES: Narrowing of the joint spaces. SOFT TISSUES: Unremarkable. No definite joint effusion. IMPRESSION: No definite acute osseous abnormality of the right elbow. Mild osteoarthritic changes. Reviewed, dictated and finalized at location A.
--- NOTE | ~2024-10-21 | CT_ITS ---
CT brain wo con Ordering provider: Zackary Robles MD History: 74 years Female with . Fall . Comparison: August 09, 2024 Technique: CT of the head without contrast. Radiation reduction technique utilized.The dose-length pr oduct was 681 mGy-cm. FINDINGS: BRAIN PARENCHYMA AND CSF SPACES: Mild leukoaraiosis and diffuse cortical atrophy. Mild atheromatous d isease. No midline shift, mass effect or hemorrhage. The brain parenchyma and CSF spaces are otherwi se normal. VISUALIZED PARANASAL SINUSES: Well aerated. MASTOIDS: Well aerated. BONES: The bones appear intact. SOFT TISSUES: Visualized nasopharynx is normal. Superficial soft tissues are normal. IMPRESSION: No acute intracranial findings. Reviewed, dictated and finalized at location A.
[2024-10-21 12:23] VITALS: BP 124/64; PULSE 79; RESP 20; TEMP 36.5; O2SAT 100
--- NOTE | 2024-10-21 15:11 | ED.GENADULT ---
HPI - General Adult General Chief complaint: Fall Stated complaint: fall Time Seen by Provider: 10/21/24 12:50 History of Present Illness HPI narrative: This is a pleasant 74-year-old female presenting after ground level fall. She was trying to to go get her mail when she tripped over a brick on the floor. She fell on her knee, then hit her elbow then struck her face. She did not lose conscious. She is not use blood thinners. She does have some significant pain in her knee. No neurologic deficits confusion or persistent vomiting. Related Data Home Medications ?Medication ?Instructions ?Recorded ?Confirmed ?Last Taken ?Type cholecalciferol (vitamin D3) 25 1,000 unit PO DAILY 04/06/23 09/05/24 05/25/23 History mcg (1,000 unit) capsule lactobacillus combination no.9 4 4,000 mmu cells PO DAILY 11/25/23 09/05/24 Unknown History billion cell capsule (Adult 50 Plus Probiotic) diphenhydramine 25 1 tablet PO QHS PRN 05/17/24 09/05/24 Unknown History mg-acetaminophen 500 mg tablet (Tylenol PM Extra Strength) aspirin 81 mg tablet,delayed 81 mg PO DAILY 07/21/24 09/05/24 Unknown History release calcium carbonate (Calcium 600) 600 mg PO DAILY 07/21/24 09/05/24 Unknown History magnesium oxide 400 mg PO DAILY 07/21/24 09/05/24 Unknown History meclizine 12.5 mg tablet 12.5 mg PO TID PRN 09/05/24 09/05/24 Unknown History Allergies Allergy/AdvReac Type Severity Reaction Status Date / Time celecoxib AdvReac Mild Itching Verified 10/21/24 12:28 [facility] Past Medical History Medical History Contact dermatitis Weight loss Diarrhea Neuropathy Constipation Surgical History Surgical History History of bilateral breast reduction surgery History of knee surgery left Family History Family History Mother Hypertension Family history of heart disease in male family member before age 55 Diabetes mellitus, Onset Age: 81 Family history of cardiovascular disease, Onset Age: 81 Sibling Hypertension Family history of heart disease in male family member before age 55 Cancer Father Family history of lung cancer Patient's father is Grandparent Family history of type 2 diabetes mellitus Social History Social History Smoking status: Never smoker Second hand tobacco smoke exposure: Yes Alcohol intake: never Substance use: never Substance use type: does not use Do You Feel Safe in your Home?: Yes Lack of Transportation: No Lack of Food: Never True Current Housing: I Have Housing Concerned About Future Housing: No Difficulty Paying Gas/Electric Bills: No Difficulty Paying for Meds: No Currently Unemployed: Decline to Answer Education: High School Diploma/GED Difficulty w/ Childcare or Family Care: No Living arrangements: with family Occupation/Education: 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 Head: atraumatic. EYES: Periorbital ecchymosis along the right eye, extraocular eye movements intact with no evidence of entrapment. No infraorbital numbness. NOSE: Atraumatic NECK: Trachea midline RESPIRATORY: No increased rate of breathing CARDIOVASCULAR: RRR, ABDOMINAL: Non-distended MUSCULOSKELETAl: Exam of the right knee revealed a small effusion with superficial abrasion. No deformities. No warmth to the joint. NEURO: Alert. Moving 4/4 extremities SKIN:: Warm, dry. Normal color PSYCHIATRIC: Normal affect Course Vital Signs Vital signs: Vital Signs Temperature 97.7 F 10/21/24 12:23 Pulse Rate 79 10/21/24 12:23 Respiratory Rate 10/21/24 12:23 Blood Pressure 124/64 10/21/24 12:23 Pulse Oximetry 100 10/21/24 12:23 Oxygen Delivery Room Air 10/21/24 12:23 Temperature 97.7 F 10/21/24 12:23 Pulse Rate 79 10/21/24 12:23 Respiratory Rate 20 10/21/24 12:23 Blood Pressure 124/64 10/21/24 12:23 Pulse Oximetry 100 10/21/24 12:23 Oxygen Delivery Room Air 10/21/24 12:23 Medical Decision Making MDM Narrative Medical decision making narrative: -Course: 74-year-old female presenting after mechanical fall. X-rays of the knee elbow, and CTs of the C-spine /brain without acute injury. X-ray of the knee shows severe tricompartmental arthritis. Patient was treated with Motrin. She can follow-up with her orthopedic surgeon for further management. Given return precautions. -DDX includes but is not limited to: Soft tissue injury, bony injury, internal derangement, intracranial hemorrhage Vital Signs Vital Signs: Vital Signs Temperature 97.7 F 10/21/24 12:23 Pulse Rate 79 10/21/24 12:23 Respiratory Rate 20 10/21/24 12:23 Blood Pressure 124/64 10/21/24 12:23 Pulse Oximetry 100 10/21/24 12:23 Oxygen Delivery Room Air 10/21/24 12:23 Temperature 97.7 F 10/21/24 12:23 Pulse Rate 79 10/21/24 12:23 Respiratory Rate 20 10/21/24 12:23 Blood Pressure 124/64 10/21/24 12:23 Pulse Oximetry 100 10/21/24 12:23 Oxygen Delivery Room Air 10/21/24 12:23 Discharge Plan Discharge Clinical Impression: Fall, Knee pain Patient Disposition: Home Condition: Stable Instructions: Antibiotic Form, Knee Pain (ED) Additional Instructions: You were seen in the emergency department after a fall. Thankfully your imaging was negative for any acute injuries. Please use Motrin for your knee pain. Please follow-up with your orthopedic surgeon for further management. If you develop any new or worsening symptoms return to the ED for re-evaluation. Patient Language: [place] Prescriptions: No Action aspirin 81 mg tablet,delayed release (DR/EC) 81 mg PO DAILY magnesium oxide 400 mg magnesium capsule 400 mg PO DAILY meclizine 12.5 mg tablet 12.5 mg PO TID PRN ipratropium bromide 21 mcg (0.03 %) spray,non-aerosol 2 spray intranasal .qd-tid Qty: 30 1RF Rx Instructions: administer into each nostril. Aim back/up/out Adult 50 Plus Probiotic 4 billion cell capsule 4,000 mmu cells PO DAILY Rx Instructions: administer with a meal calcium carbonate [Calcium 600] 600 mg calcium (1,500 mg) tablet 600 mg PO DAILY duloxetine 60 mg capsule,delayed release(DR/EC) 60 mg PO DAILY Qty: 90 2RF diphenhydramine-acetaminophen [Tylenol PM Extra Strength] 25-500 mg tablet 1 tablet PO QHS PRN cholecalciferol (vitamin D3) 25 mcg (1,000 unit) capsule 1,000 unit PO DAILY lovastatin 40 mg tablet 40 mg PO DAILY Qty: 90 4RF lisinopril 20 mg tablet 20 mg PO DAILY Qty: 90 2RF gabapentin 300 mg capsule 600 mg PO BID Qty: 360 2RF levothyroxine 88 mcg tablet 88 mcg PO DAILY Qty: 90 1RF fluticasone propionate [Flonase Allergy Relief] 50 mcg/actuation spray,suspension 1 spray intranasal BID Qty: 48 0RF Rx Instructions: administer into each nostril Follow-up/Referrals: Jay Lynn MD [Primary Care Provider] -
[2024-10-21] MEDS: IBUPROFEN 400 MG TABLET 800 MG PO (15:46)
== END 2024-10-21 15:47 | disposition home or self-care (01) ==
PROVIDERS: Emergency Provider Emergency Medicine; PCP Emergency Medicine
DX: S00.11XA Contusion of right eyelid and periocular area, initial encounter (principal); S80.211A Abrasion, right knee, initial encounter; G62.9 Polyneuropathy, unspecified; Z77.22 Contact with and (suspected) exposure to environmental tobacco smoke (acute) (chronic); M17.11 Unilateral primary osteoarthritis, right knee; M51.369 Other intervertebral disc degeneration, lumbar region without mention of lumbar back pain or lower extremity pain; M50.31 Other cervical disc degeneration, high cervical region; M48.02 Spinal stenosis, cervical region; W18.09XA Striking against other object with subsequent fall, initial encounter
CPT/HCPCS: 70450; 72125; 73080; 73564; 99284; A9270